=== PATIENT | male | born 1960 | race Caucasian/White ===

== ENCOUNTER 2016-03-04 12:38 | Emergency (ER) | payer MEDICARE ==
[2012-10-08 20:48] VITALS: BMI 26.1
[~2016-03-04 12:38] MED LIST: APRESOLINE25 MG PO; ASPIRIN325 MG PO; ASPIRIN81 MG PO; DIABETA5 MG PO; EFFIENT10 MG PO; GLIMEPIRIDE1 MG PO; GLUCOPHAGE1000 MG PO; KEFLEX500 MG PO; LANTUS SOL100 UNIT/1; NITROSTAT0.3 MG SL; NORCO 10/325 TA1 TA1 PO; NORVASC5 MG PO; PRINIVIL20 MG PO; TOPROL XL50 MG PO; VENTOLIN HFA18 GM INH; ZOCOR40 MG PO
[2016-03-04 13:31] LABS: BASOPHILS 0.3 % (0.0-2.0); EOSINOPHILS 0.4 % (0-7); HEMATOCRIT 40.2 % (42.0-54.0); HEMOGLOBIN 13.9 g/dL (13.5-17.5); IMMATURE GRANULOCYTES 0.3 % (0-5); LYMPHOCYTES 16.6 % (15-50); MCH 29.3 pg (26.0-34.0); MCHC 34.6 g/dL (31.0-37.0); MCV 84.6 fL (80.0-100.0); MEAN PLATELET VOLUME 8.9 fL (7.4-10.4); MONOCYTES 6.3 % (2-11); NEUTROPHILS 76.1 % (40-80); PLATELET COUNT 244 10x3/uL (130-400); RBC 4.75 10x6/uL (4.20-6.10); RDW 12.7 % (11.5-14.5); WBC 10.3 10x3/uL (4.8-10.8)
[2016-03-04 13:45] LABS: ALBUMIN 3.9 g/dL (3.4-5.0); ALKALINE PHOSPHATASE 63 U/L (46-116); ALT (SGPT) 40 U/L (10-68); CALC OSMOLALITY 265 mosm/kg (275-300); CARBON DIOXIDE 25.2 mmol/L (21.0-32.0); CHLORIDE - SERUM 95 mmol/L (98-107); CREATININE - SERUM 0.9 mg/dL (0.6-1.3); GLUCOSE 179 mg/dL (74-106); POTASSIUM - SERUM 3.7 mmol/L (3.5-5.1); PROTEIN - SERUM 6.6 g/dL (6.4-8.2); SODIUM 131 mmol/L (136-145); UREA NITROGEN 10 mg/dL (7-18); eGFR NON AFRICAN AMERICAN > 90 mL/min (90-120)
[2016-03-04 13:57] LABS: CHOL - HDL RATIO 2.5 ratio (2.3-4.9); CHOLESTEROL, TOTAL 125 mg/dL (0-200); CKMB 2.9 U/L (0.0-3.6); CREATINE KINASE 195 UL (21-232); HDL CHOLESTEROL 50 mg/dL (32-96); LDL CHOLESTEROL 58 mg/dL (0-100); LDL-HDL RATIO 1.2 ratio (1.5-3.5); MAGNESIUM - SERUM 1.3 mg/dL (1.8-2.4); TRIGLYCERIDE 85 mg/dL (30-200); TROPONIN-I < 0.017 ng/mL (0.000-0.060)
== END 2016-03-04 17:37 | disposition home or self-care (01) ==
LOC: D.ER 12:38
PROVIDERS: Emergency Medicine
DX: R07.9 Chest pain, unspecified (principal); F41.9 Anxiety disorder, unspecified; I25.10 Atherosclerotic heart disease of native coronary artery without angina pectoris; E11.9 Type 2 diabetes mellitus without complications; Z79.4 Long term (current) use of insulin; Z86.73 Personal history of transient ischemic attack (TIA), and cerebral infarction without residual deficits; F17.200 Nicotine dependence, unspecified, uncomplicated

== ENCOUNTER 2016-04-18 10:39 | Observation (INO) | payer MEDICARE, MEDICAID ==
[~2016-04-18] VITALS: Ht 182.9 cm; Wt 77.5 kg
--- NOTE | ~2016-04-18 | HEMODYNAMI ---
PATIENT:ORIANA WILSON JR MEDICAL RECORD: [id number] : 62 LOCATION:[facility] D.[address] [facility]# [id number] ADMISSION DATE: 04/18/16 Generatedon:04/20/201611:29 Patient name: ORIANA WILSON Patient #: [id number] SSN: D OB: 1960 Date of study: 04/20/2016 Page: Of Hemodynamic Procedure Report Patient Data Patient Demographics Procedure consent was obtained First Name: ORIANA Gender: Male Last Name: STEVE Suffix: [facility] Initial: Venita : 1960 Patient #: [id number] Age: 55 year(s) Race: Additional ID: [id number] Contact details Address: [address] [place] [address] B State: [place] City: [place] Zip code: [address] Past Medical History History of disease Date Diagnosis Comments Chronic lung disease->COPD COPD Hypertension Diabetes CAD Allergies Allergen Reaction Date Comments Reported Other allergy 04/20/2016 influenza virus vaccine specific Admission Admission Data Admission Date: 04/18/2016 Admission Time: 12:32 Room #: D.2121 Weight (lbs.): 175 Weight (kg.): 79.38 Current Diagnosis Diagnosis Description Unstable angina Lab Results Lab Result Date: 04/20/2016 Lab Result Time: 0:00 Biochemistry Name Units Result Min Max BUN mg/dl 13 --(--*-)-- 7 18 Creatinine mg/dl 1 --(--*-)-- 0.6 1.3 CBC Name Units Result Min Max Hemoglobin g/dl 16 --(--*-)-- 13.5 17.5 Procedure Procedure Types Cath Procedure Diagnostic Procedure [facility] w/Coronaries PCI Procedure Coronary Stent Initial PTCA Additional Miscellaneous Procedures Moderate Sedation up to 30 minutes Procedure Description Procedure Date Procedure Date: 04/20/2016 Procedure Start Time: 11:03 Procedure End Time: 11:23 Procedure Staff Name Function Bon Agarwal MD Performing Physician Dulce Pacheco RN Nurse Nicholas Rdz RT Monitor Kalia Lockwood RT Scrub Procedure Data Cath Procedure Fluoroscopy Diagnostic fluoroscopy Total fluoroscopy Time: 5.1 time: 5.1 min min Diagnostic fluoroscopy Total fluoroscopy dose: 260 dose: 260 mGy mGy Contrast Material Contrast Material Type Amount (ml) Isovue 300 101 Entry Location Entry Primary Successful Side Size Upsize Upsize Entry Closure Succes sful Closure Location (Fr) 1 (Fr) 2 (Fr) Remarks Device Remarks Femoral Right 5 Fr 6 Fr Exoseal artery Short Diagnostic catheters Device Type Used For End Catheter Placement Cordis 5Fr Pigtail LV Angiography Catheter (MP) Cordis 5Fr JL 4.0 Left Coronary Catheter (MP) Angiography Cordis 5Fr 3DRC Catheter Right Coronary (MP) Angiography Procedure Complications No complications Procedure Medications Medication Administration Route Dosage Plavix P.O. 75 mg Heparin Flush Bag added to field 2 bags (1000units/500ml NS) Oxygen NC 2 l/min Lidocaine 2% added to field 20 Versed I.V. 1 mg Fentanyl I.V. 50 mcg Versed I.V. 1 mg Fentanyl I.V. 50 mcg Heparin Bolus I.V. 4000 units Hemodynamics Rest HGB: 16 (g/dl) Heart Rate: 51 (bpm) Snapshots Pre Cath Intra NCS Post Cath Vital Signs Time Heart Resp SPO2 NIBP (mmHg) Rhythm Pain Sedation Rate (ipm) (%) Status Level (bpm) 10:49:15 55 18 100 157/93(129) NSR 0 (11) 10(A) , No pain 10:53:33 62 18 100 157/94(136) NSR 0 (11) 10(A) , No pain 10:57:49 67 20 96 140/87(115) NSR 0 (11) 10(A) , No pain 11:02:06 67 20 98 127/85(100) NSR 0 (11) 9(A) , No pain 11:06:15 65 15 95 145/87(109) NSR 0 (11) 9(A) , No pain 11:10:32 67 14 96 144/82(111) NSR 0 (11) 9(A) , No pain 11:14:48 63 14 96 143/84(113) NSR 0 (11) 9(A) , No pain 11:19:03 65 15 96 149/87(111) NSR 0 (11) 9(A) , No pain 11:23:18 65 16 96 138/87(124) NSR 0 (11) 9(A) , No pain Medications Time Medication Route Dose Verified Delivered Reason Notes Effectiveness by by 10:47:03 Oxygen NC 2 Bon Crockett Per physician l/min Any Agarwal MD 10:47:25 Plavix P.O. 75 mg Bon Dulce for Any Pacheco RN antiplatelet therapy 10:47:33 Heparin Flush added 2 Bonamy Crockett used for Bag to bags Any Agarwal MD procedure (1000units/500ml field NS) 10:47:55 Lidocaine 2% added 20ml Bon Bon used for to vial Any Agarwal MD procedure field 10:58:58 Versed I.V. 1 mg Bon Dulce for sedation Any Pacheco RN 10:59:04 Fentanyl I.V. 50 Bon Dulce for sedation mcg Any Pacheco RN 11:01:07 Versed I.V. 1 mg Bon Dulce for sedation Any Pacheco RN 11:01:11 Fentanyl I.V. 50 Bon Dulce for sedation mcg Any Pacheco RN 11:09:32 Heparin Bolus I.V. 4000 Bon Dulce for dose units Any Pacheco RN anticoagulation verified [facility] dr agarwal Procedure Log Time Note 10:15:44 Nicholas Rdz RT(R) sent for patient. Start room use. 10:28:51 Time tracking: Regular hours 10:28:54 Plan of Care:Hemodynamics will remain stable., Cardiac rhythm will remain stable., Comfort level will be maintained., Respiratory function will remain adequate., Patient/ family verbilizes understanding of procedure., Procedure tolerated without complication., Recovers from procedure without complications.. 10:29:12 ACC Patient presents with Unstable Angina CCS Anginal Class 3--Marked limitation of physical activity, angina occurs with ordinary activity.. 10:30:32 ACCPatient has been prescribed/administered the following anti-anginal medication within the last 2 weeks: Beta Jose 10:39:31 Patient received from PCU to CCL 3 Alert and oriented. Tansferred to table in Supine position. 10:39:32 Warm blankets applied, and nura hugger turned on for patient comfort. 10:39:33 Correct patient and procedure confirmed by team. 10:39:34 Signed procedure consent form obtained from patient. 10:39:34 ECG and BP/O2 sat monitors applied to patient. 10:47:03 Oxygen 2 l/min NC was given by Bon Agarwal MD; Per physician; 10:47:25 Plavix 75 mg P.O. was given by Dulce Pacheco RN; for antiplatelet therapy; 10:47:33 Heparin Flush Bag (1000units/500ml NS) 2 bags added to field was given by Bon Agarwal MD; used for procedure; 10:47:55 Lidocaine 2% 20ml vial added to field was given by Bon Agarwal MD; used for procedure; 10:48:08 Vital chart was started 10:52:10 Baseline sample Acquired. 10:52:14 Rhythm: sinus rhythm 10:52:15 Full Disclosure recording started 10:52:35 H&P Date Dictated: 04/18/2016 Within 30 days and on chart.. 10:53:54 Pre-procedure instructions explained to patient. 10:53:55 Pre-op teaching completed and patient verbalized understanding. 10:53:58 Family unavailable. 10:53:59 Patient NPO since Midnight. 10:54:30 Patient allergic to Other allergyinfluenza virus vaccine specific 10:54:32 Is the patient allergic to Iodine/contrast media? No. 10:54:37 Is patient on blood thinner?Yes 10:54:40 ACC The patient was administered the following blood thiners within the last 24 hours: ACCPlavix 10:54:42 Patient diabetic? Yes. 10:54:44 If diabetic: On Metformin? Yes 10:54:49 If on Metformin: Last Dose? 04/16/2016 10:54:51 ----Pre-sedation anethsthesia assessment.---- 10:54:53 Previous problem with sedation/anesthesia? No ? 10:54:54 Snore? Yes 10:54:55 Sleep apnea? No 10:54:58 Deviated septum? No 10:54:59 Opens mouth fully? Yes 10:55:00 Sticks out tongue? Yes 10:55:08 Airway obstruction? Yes emphyzemia, COPD 10:55:12 Dentures? No ? 10:55:16 Pre procedure: right dorsailis pedis pulse 1+ Palpable, but thready & weak; easily obliterated 10:55:18 Patient pain scale 0/10 ?. 10:55:23 IV patent on arrival in right antecubital with 0.9% NaCl at 10ml/hr. 10:55:48 Lab Result : BUN 13 mg/dl 10:55:48 Lab Result : Creatinine 1 mg/dl 10:55:48 Lab Result : Hemoglobin 16 g/dl 10:55:51 Lab results completed and on chart. 10:55:55 Right groin area was prepped with chlora-prep and draped in sterile fashion 10:55:56 Alarms reviewed by R. N. 10:55:56 Sharps counted by scrub and verified by R.N. 10:56:02 Use device set Femoral Dx 10:56:03 Acist Syringe opened to sterile field. 10:56:03 Bag Decanter opened to sterile field. 10:56:03 Medline Cath Pack opened to sterile field. 10:56:04 Terumo 5Fr [place] Sheath opened to sterile field. 10:56:04 St Nathan 260cm J .035 wire opened to sterile field. 10:56:06 Acist Hand Control opened to sterile field. 10:56:06 Acist Manifold opened to sterile field. 10:56:06 Diagnostic Infinity 5Fr Multipack catheter opened to sterile field. 10:56:07 Tegaderm 4 x 4 opened to sterile field. 10:58:01 Patient Weight : 79.38 kg 10:58:04 Current Diagnosis : Unstable angina 10:58:44 --------ALL STOP TIME OUT------ 10:58:45 Final Timeout: patient, procedure, and site verified with staff and physician. All members of the team are in agreement. 10:58:47 Right groin site verified by team. 10:58:50 Physical assessment completed. ASA score P 2 - A patient with mild systemic disease as per Bon Agarwal MD. 10:58:53 Sedation plan: IV Moderate Sedation Versed, Fentanyl 10:58:58 Versed 1 mg I.V. was given by Dulce Pacheco RN; for sedation; 10:59:04 Fentanyl 50 mcg I.V. was given by Dulce Tara RN; for sedation; 11:01:07 Versed 1 mg I.V. was given by Dulce Pacheco RN; for sedation; 11::11 Fentanyl 50 mcg I.V. was given by Dulce Pacheco RN; for sedation; 11:03:26 Procedure started. 11:03:38 Local anesthetic to right femoral artery with Lidocaine 2% by Bon Agarwal MD.INITIAL ACCESS ONLY 11:03:52 A 5 Fr sheath was inserted into the Right Femoral artery 11:04:15 Zero performed for pressure channel P1 11:04:44 A Cordis 5Fr Pigtail Catheter (MP) was advanced over the wire and used for LV Angiography. 11:04:48 LV angiography performed. 11:04:49 LV gram done using VELEZ 11:04:51 LV hemodynamics recorded. 11::57 Injector settings: Ml/sec: 10, Volume: 20, 11:05:46 EF : 40 % 11:05:47 Catheter removed. 11:05:52 A Cordis 5Fr JL 4.0 Catheter (MP) was advanced over the wire and used for Left Coronary Angiography. 11:07:03 LCA angiography performed. 11:07:04 Catheter removed. 11:07:09 A Cordis 5Fr 3DRC Catheter (MP) was advanced over the wire and used for Right Coronary Angiography. 11:07:12 RCA angiography performed. 11:08:10 Catheter removed. 11:08:36 Reflex Systems BasixCompak Inflation Kit opened to sterile field. 11:08:36 Singleton Whisper J 300cm 0.014 guide wire opened to sterile field. 11:08:37 Terumo 6Fr [place] Sheath opened to sterile field. 11:08:37 Cordis 6FR XBLAD 4.0 guide catheter opened to sterile field. 11:08:46 Sheath upsized to a 6 Fr Short. 11:08:54 ACC PCI Site: Diag1 has 85% stenosis. 11:08:56 ACC Pre-intervention JEAN MARIE Flow is 3. 11:09:02 6 Fr XBLAD 4 guide catheter was inserted over the wire 11:09:32 Heparin Bolus 4000 units I.V. was given by Dulce Pacheco RN; for anticoagulation; dose verified wtih dr agarwal 11:09:41 Procedure type changed to Cath procedure, Diagnostic procedure, LHC, LHC w/Coronaries, PCI procedure, Coronary Stent Initial, PTCA Additional, Miscellaneous Procedures, Moderate Sedation up to 30 minutes 11:10:10 WHISPER wire advanced. 11:11:31 Inflation number: 1 A [place] [employer] Clay 2.5 X 15 balloon was prepped and advanced across the 1st Diag, then inflated to 17 CARLIE for 0:11 (min:sec). 11:12:25 Balloon removed over the wire. 11:13:34 Inflation Number: 2 A [employer] Integrity 3.0 X 12 stent was prepped and advanced across the 1st Diag. The stent was deployed at 19 CARLIE for 0:10 (min:sec). 11:13:47 Stent catheter was removed intact over wire. 11:13:48 Wire removed. 11:13:58 LAD WHISPER wire advanced. 11:14:34 Inflation number: 1 The stent balloon was then re-inflated across the Mid LAD to 5 CARLIE for 0:16 (min:sec). 11:14:56 Stent catheter was removed intact over wire. 11:16:09 Inflation number: 2 A Euphora 3.0 x 10 balloon was prepped and advanced across the Mid LAD, then inflated to 13 CARLIE for 0:06 (min:sec). 11:16:20 Inflation number: 3 The Euphora 3.0 x 10 balloon was reinflated across the Mid LAD, to 13 CARLIE for 0:10 (min:sec). 11:16:58 Balloon removed over the wire. 11:16:58 Wire removed. 11:16:59 Guide catheter removed. 11:17:04 Contrast amount:Isovue 300 101ml. 11:17:11 Cordis 6Fr Exoseal opened to sterile field. 11:17:18 Sheath removed intact; hemostasis achieved with Exoseal to the Right Femoral artery. 11:17:20 Procedure ended.(Physican Out) 11:17:41 Fluoroscopy time 05.10 minutes. 11:17:46 Fluoroscopy dose: 260 mGy 11:17:46 Flurop Dose total: 260 11:17:48 Sharps counted by scrub and verified by R.N. 11:17:49 Insertion/operative site no bleeding no hematoma. 11:17:51 Post-op/insertion site Right Femoral artery dressed using a 4 x 4 and Tegaderm. 11:17:54 Post right femoral artery:stable 11:17:55 Post Procedure Pulses reassessed and unchanged 11:17:57 Post procedure: right dorsailis pedis pulse 1+ Palpable, but thready & weak; easily obliterated. 11:18:00 Post procedure rhythm: sinus rhythm 11:18:01 Post procedure instruction explained to patient.Patient verbalizes understanding. 11:22:36 Procedure and supply charges have been captured, reviewed, submitted and are correct. 11:23:00 Procedure Complication : No complications 11:23:02 Vital chart was stopped 11:23:03 See physician's report for complete and final results. 11:23:05 Report given to PCU. 11:23:08 Patient transfered to PCU with Bed. 11:23:10 Procedure ended. 11:23:10 Full Disclosure recording stopped 11:23:12 End room use (Document Last) 11:23:16 ACC-PCI Only Patient was given prescriptions, or instructed by Bon Agarwal MD to start/continue the following medications upon discharge: Plavix Intervention Summary Intervention Notes Time ActionType Lesion and Equipment Action# Pressure Duration Attributes Used 11:11:31 Inflate 1st Diag [place] 1 17 00:11 balloon Sci Clay 2.5 X 15 balloon 11:13:34 Place stent 1st Diag Medtronic 2 19 00:10 Integrity 3.0 X 12 stent 11:14:34 Reinflate Mid LAD Medtronic 1 5 00:16 stent Integrity balloon 3.0 X 12 stent 11:16:09 Inflate Mid LAD Euphora 2 13 00:06 balloon 3.0 x 10 balloon 11:16:20 Reinflate Mid LAD Euphora 3 13 00:10 balloon 3.0 x 10 balloon Device Usage Item Name Manufacture Quantity Catalog Number Hospital Part Current Mini [facility] Lot# / Charge Number Stock Stock Serial# Code Acist Acist 1 04964 868649 671302 484342 20 Syringe Medical Systems Inc Bag Microtek 1 2002S 390778 20724 651785 5 Nirvanix Inc. Medline Cardinal 1 [id number] 991431 51791 500788 5 Designer Material Terumo 5Fr Terumo 1 [id number] 299644 611387 198960 [address] Nathan 1 324545 618494 684512 852669 30 260cm J .035 wire Acist Hand Acist 1 39199 642526 574329 515278 5 Control Medical Systems Inc Acist Acist 1 55448 757117 672782 228720 5 Manifold Medical Systems Inc Diagnostic Cardinal 1 [id number] 428496 80483 795689 30 Infinity Health 5Fr Multipack catheter Tegaderm 4 3M 1 1626W 508114 334734 123157 5 x 4 Cordis 5Fr Cardinal 1 233303 5 Pigtail Health Catheter (MP) Cordis 5Fr Cardinal 1 746674 5 JL 4.0 Health Catheter (MP) Cordis 5Fr Cardinal 1 715490 5 3DRC Health Catheter (MP) [facility] 1 LM3164 176592 647798 916280 15 BasixCompak Medical Inflation Kit Singleton Singleton 1 [id number] 379472 334636 955554 5 Whisper J Vascular 300cm 0.014 guide wire Terumo 6Fr Terumo 1 [id number] 676018 945938 718274 40 [place] Sheath Cordis 6FR Cardinal 1 [id number] 857163 761645 180011 3 XBLAD 4.0 Health guide catheter [place] Sci [place] 1 [id number] 445625 835149 979151 1 [id number] I-lighting Scientific 2.5 X 15 balloon Medtronic Medtronic 1 [id number] 553638 672492 023894 0 [id number] Integrity 3.0 X 12 stent Euphora 3.0 Medtronic 1 [id number] 353248 388871 251527 5 [id number] x 10 balloon Cordis 6Fr Cardinal 1 [id number] 218485 457291 594208 10 [facility] Aidhenscorner Signature Audit [place] Stage Time Signature Unsigned Intra-Procedure 04/20/2016 Nicholas Rdz 11:28:54 AM RT(R) Signatures Monitor : Nicholas Rdz RT Signature : Date : Time : [facility] [address] [facility], [place] [address]
[2016-04-18 11:09] LABS: BASOPHILS 0.4 % (0.0-2.0); EOSINOPHILS 1.5 % (0-7); HEMATOCRIT 45.8 % (42.0-54.0); IMMATURE GRANULOCYTES 0.1 % (0-5); LYMPHOCYTES 18.8 % (15-50); MCH 29.9 pg (26.0-34.0); MCHC 34.9 g/dL (31.0-37.0); MCV 85.4 fL (80.0-100.0); MEAN PLATELET VOLUME 9.3 fL (7.4-10.4); NEUTROPHILS 73.2 % (40-80); PLATELET COUNT 233 10x3/uL (130-400); RBC 5.36 10x6/uL (4.20-6.10); WBC 7.5 10x3/uL (4.8-10.8)
[2016-04-18 11:29] LABS: ALBUMIN 4.1 g/dL (3.4-5.0); ALKALINE PHOSPHATASE 91 U/L (46-116); ALT (SGPT) 43 U/L (10-68); BILIRUBIN - TOTAL 0.42 mg/dL (0.2-1.3); CALC OSMOLALITY 288 mosm/kg (275-300); CALCIUM 9.4 mg/dL (8.5-10.1); CARBON DIOXIDE 27.5 mmol/L (21.0-32.0); CHLORIDE - SERUM 98 mmol/L (98-107); POTASSIUM - SERUM 4.2 mmol/L (3.5-5.1); PROTEIN - SERUM 7.5 g/dL (6.4-8.2); SODIUM 137 mmol/L (136-145); UREA NITROGEN 13 mg/dL (7-18); eGFR NON AFRICAN AMERICAN 83 mL/min (90-120)
[2016-04-18 11:30] LABS: GLUCOSE 360 mg/dL (74-106)
[2016-04-18 11:40] LABS: CKMB 3.4 U/L (0.0-3.6); CREATINE KINASE 190 UL (21-232)
[2016-04-18 11:43] LABS: TROPONIN-I < 0.017 ng/mL (0.000-0.060)
--- NOTE | 2016-04-18 13:30 | NUR ---
RECIEVED FROM ER. ALERT ORIENTED.TELEMERTY SHOWS SR. PT IS ON ROOM AIR. V/S STABLE.RIGHT AC SL. DENIES ANY NEEDS AT PRESENT TIME. WILL MONITOR
[2016-04-18] MEDS ORDERED: CRESTOR20 MG PO (14:43)
[2016-04-18] MEDS ORDERED: ZOLOFT50 MG PO (14:44)
[2016-04-18] MEDS ORDERED: PRINIVIL20 MG PO (14:45)
[2016-04-18] MEDS ORDERED: GLIMEPIRIDE4 MG PO (14:47)
[2016-04-18] MEDS ORDERED: HYDROCODONE-APA1 TAB PO (14:48)
[2016-04-18 16:18] VITALS: BP 139/85
--- NOTE | 2016-04-18 17:33 | NUR ---
AMBULATING IN HALLWAY. DENIES ANY NEEDS. BACK TO ROOM. CALL LIGHT IN REACH WITH SR UP
[2016-04-18 18:41] VITALS: Ht 182.9 cm; Wt 77.5 kg
--- NOTE | 2016-04-18 18:46 | NUR ---
WATCHING TV NAD NOTED
--- NOTE | 2016-04-18 19:15 | NUR ---
INITIAL ROUNDS MADE. PT SITTING UP IN BED WATCHING TV. NO NEEDS OR C/O AT THIS TIME. STATES "GONNA GO WALKING". WILL CONT TO MONITOR.
[2016-04-18 21:07] VITALS: BP 139/92
[2016-04-19 00:34] VITALS: BP 146/97
--- NOTE | 2016-04-19 00:55 | NUR ---
ROOF SLATER AT BEDSIDE FOR VS, NEEDS ADDRESSED. CALL LIGHT IN REACH. WILL CONT TO MONITOR.
[2016-04-19 04:26] VITALS: BP 135/83
--- NOTE | 2016-04-19 06:43 | NUR ---
RESTING WELL WITH EYES CLOSED, CONT TO MONITOR.
--- NOTE | 2016-04-19 07:30 | NUR ---
RESTING QUIETLY DENIES ANY NEEDS OR DISCOMFORT AT THIS TIME NAD NOTED
[2016-04-19 08:33] VITALS: BP 145/93
[2016-04-19 12:26] VITALS: BP 163/96
[2016-04-19 15:46] VITALS: BP 151/101
--- NOTE | 2016-04-19 16:29 | NUR ---
FSBS 337 HUMALOG 8 UNITS GIVEN SQ ABD
--- NOTE | 2016-04-19 19:15 | NUR ---
INITIAL ROUNDS MADE. PT AMBULATING HALLS. NO NEEDS OR C/O VOICED AT THIS TIME. DISCUSSED PLAN OF CARE AND NPO AFTER MN.
[2016-04-19 20:00] VITALS: BP 127/81
--- NOTE | 2016-04-19 22:35 | NUR ---
WATCHING TV. NO NEEDS AT THIS TIME. CONT TO MONITOR.
--- NOTE | 2016-04-20 03:26 | NUR ---
TOWEL INSPECTOR AT BEDSIDE FOR VS. NEEDS ADDRESSED, CALL LIGHT IN REACH. WILL CONT TO MONITOR.
[2016-04-20 03:49] VITALS: BP 139/90
--- NOTE | 2016-04-20 05:15 | NUR ---
AMBULATE WITH PT TO ER REGISTRATION TO LOCK UP PT MARIZTA
--- NOTE | 2016-04-20 06:11 | NUR ---
PT UP TO SHOWER.
[2016-04-20 08:17] VITALS: BP 170/102
--- NOTE | 2016-04-20 09:20 | NUR ---
TELEMETRY SR. NPO FOR [facility]. WILL CONT. PLAN OF CARE.
--- NOTE | 2016-04-20 10:00 | NUR ---
UP AMBULATING HALLWAY ADLIB. GAIT STEADY.
--- NOTE | 2016-04-20 10:09 | HP ---
PATIENT: ORIANA WILSON JR MEDICAL RECORD: [id number] ACCOUNT: [id number] LOCATION:[address] : 62 ADMISSION DATE: 04/18/16 HISTORY AND PHYSICAL EXAMINATION DIAGNOSES: 1. Unstable angina. 2. Coronary artery disease. 3. Previous multivessel percutaneous transluminal coronary angioplasty stent. 4. Previous cerebrovascular accident. 5. Diabetes. 6. Hypertension. 7. Hyperlipidemia. HISTORY OF PRESENT ILLNESS: This is a gentleman who presents with chest pain for the past 24 hours. His EKG has nonspecific ST-T abnormalities, especially inferiorly. He continues to have chest pain, this is just like his previous anginal pain. Last cardiac stenting was in 2012. He does have hypertension, hyperlipidemia and diabetes, and he has not been on any medications for the past few days due to noncompliance. PHYSICAL EXAMINATION: GENERAL APPEARANCE: Well-nourished, well-developed, appears stated age. Level of distress, comfortable. PSYCHIATRIC: Mental status, alert, normal affect. Orientation, oriented to time, place and person. EYES: Lids and conjunctiva, noninjected. No discharge, no pallor. ENT: Lips, teeth, gums, normal dentition. Oropharynx, no cyanosis, no pallor. NECK: Carotid arteries, bilateral normal upstroke, no bruits, no thrills. JUGULAR VEINS: No jugular venous pressure or distention. CERVICAL LYMPH NODES: Nontender, nonenlarged. THYROID: Not enlarged. Nontender. No nodules. LUNGS: Respiratory effort, unlabored. CHEST: Normal curvature. No thoracic deformity. No chest wall tenderness. Percussion, resonant. Auscultation, clear. No wheezes, no rales, no rhonchi. CARDIOVASCULAR: Precordial exam, nondisplaced. No heaves or pericardial thrills. Rate and rhythm, regular. Heart sounds, normal S1, normal S2. No S3, no gallop, no rub. Systolic murmur, not heard. Diastolic murmur, not heard. EXTREMITIES: No cyanosis, no edema. Peripheral pulses, full and equal in all extremities, except as noted. No bruits appreciated. ABDOMEN: Soft, nondistended. Normal aorta. No bruit. Nontender. No masses. Liver, nontender, no hepatomegaly. Spleen, nontender, no splenomegaly. MUSCULOSKELETAL: No joint tenderness. No joint swelling. No erythema. NEUROLOGICAL: Normal gait, normal strength, normal tone. SKIN: Warm and dry. REVIEW OF SYSTEMS: The patient reports easy bruising but reports no swollen glands. The patient reports no fever, no night sweats, no significant weight gain, no significant weight loss. No significant exercise tolerance. The patient reports no dry eyes, no irritation, no vision change. Patient reports no difficulty hearing and no ear pain. Patient reports no frequent nose bleeds or nose and sinus problems. Patient reports on arm pain on exertion. No shortness of breath while lying down. No history of heart murmur. Patient reports no cough, no wheezing or coughing up blood. Patient reports no abdominal pain, no vomiting. Normal appetite. No diarrhea and not vomiting HISTORY AND PHYSICAL [id number] ORIANA WILSON blood. No nausea and no constipation. Patient reports no incontinence. No difficulty urinating. No hematuria. No increased frequency. Patient reports no muscle aches. No weakness, no arthralgias, no back pain. No swelling of the extremities. Patient reports no abnormal mole, no jaundice, no rashes. Reports no loss of consciousness. No weakness and no numbness. No seizures, dizziness, or headaches. The patient reports no depression, no sleep disturbance, feeling safe in a relationship and no alcohol abuse. Patient reports on fatigue. Reports no runny nose or sinus pressure. No itching, no hives, and no frequent sneezing. OVERALL IMPRESSION: Unstable angina. At this time, we will load with Plavix, start aspirin, give Lovenox, restart his metoprolol and give nitrates. Plan for cardiac catheterization in the near future. TRANSINT:[id number] Voice Confirmation ID: [id number] DOCUMENT ID: [id number] JANNA GRAF MD at 1009 CC: [id number] DICTATION DATE: 04/18/16 1141 OUTSIDE SALES ASSOCIATE: 04/18/16 1208 ADM IN [place] [id number] [place] [address]
--- NOTE | 2016-04-20 10:34 | NUR ---
PRE-OPS GIVEN BY NS. TO MACHINE I CUTTER BY BED.
--- NOTE | 2016-04-20 11:50 | NUR ---
BACK FROM DYE MACHINE OPERATOR. VS WNL. RIGHT GROIN STABLE WITHOUT BLEEDING OR HEMATOMA NOTED. WILL MONITOR.
[2016-04-20 12:31] VITALS: BP 130/90
--- NOTE | 2016-04-20 15:26 | NUR ---
BED REST UP. GROIN STABLE.
[2016-04-20 15:55] VITALS: BP 138/89
--- NOTE | 2016-04-20 19:15 | NUR ---
INITIAL ROUNDS MADE. PT SITTING UP IN CHAIR AT BEDSIDE. RIGHT GROIN STABLE. VSS. DENIES NEEDS OR C/O. WILL CONT TO MONITOR.
[2016-04-20 20:00] VITALS: BP 126/79
[2016-04-21] VITALS: BP 127/68
--- NOTE | 2016-04-21 00:26 | NUR ---
RENDERER AT BEDSIDE FOR VS, NEEDS ADDRESSED. CALL LIGHT IN REACH. WILL CONT TO MONITOR.
[2016-04-21 04:00] VITALS: BP 114/69
[2016-04-21 08:08] VITALS: BP 150/90
[2016-04-21] MEDS ORDERED: EFFIENT10 MG PO (08:27)
[2016-04-21] MEDS ORDERED: PLAVIX75 MG PO (08:49)
--- NOTE | 2016-04-21 09:12 | NUR ---
DC PLANS GIVEN. UNDERSTANDING VOICED.
--- NOTE | 2016-05-05 14:37 | DS ---
PATIENT:ORIANA GARCIA JR :62 MEDICAL RECORD: [id number] DISCHARGE SUMMARY ADMISSION DATE: 04/18/16 DISCHARGE DATE: 04/21/16 DISCHARGE DIAGNOSES: 1. Unstable angina. 2. Coronary artery disease. 3. Percutaneous transluminal coronary angioplasty stent LAD diagonal this admission. 4. Smoking history. 5. Chronic obstructive pulmonary disease. 6. Hypertension. HOSPITAL COURSE: Mr. Garcia presents with anginal symptomatology, found to have single vessel disease to the LAD diagonal and LAD underwent successful PTCA stent of the LAD diagonal. PTCA of the left anterior descending for in-stent restenosis was discharged home with the addition of aspirin and Plavix to his medical regimen. He will follow up with [facility] in 1 month. TRANSINT:[id number] Voice Confirmation ID: [id number] DOCUMENT ID: [id number] JANNA GRAF MD at 1437 CC: [id number] DICTATION DATE: 04/20/16 1125 [address] ATTENDANT: 04/21/16 0309 DIS IN 04/21/16 [place] [id number] [place] [address]
--- NOTE | 2016-05-05 14:37 | OP ---
PATIENT NAME: ORIANA WILSON JR MEDICAL RECORD: [id number] :62 LOCATION:D.M2 D.2121 ADMISSION DATE:04/18/16 SURGEON: JANNA GRAF MD DATE OF OPERATION: 04/20/2016 PROCEDURES: 1. PTCA stent LAD diagonal. 2. PTCA, LAD. 3. Left heart catheterization. 4. Selective coronary angiography. 5. Left ventriculogram. INDICATION: Angina and coronary artery disease. PROCEDURE IN DETAIL: After informed consent was obtained and after a detailed explanation of the risks, benefits as well as alternative therapies, the patient elected to proceed with angiogram and angioplasty. The right femoral area was prepped and draped in normal sterile fashion. Right femoral artery was cannulated via modified Seldinger technique with placement of 6-Azeri sheath. All catheters exchanged through this sheath. FINDINGS: The left ventriculogram was performed in standard 30-degree VELEZ view, reveals apical hypokinesis. Overall ejection fraction decreased at 40%. SELECTIVE CORONARY ANGIOGRAPHY: 1. Left main has no significant angiographic disease. 2. Left anterior descending has previously placed stents with 70% in-stent restenosis. The diagonal has 85% stenosis at its ostium. 3. Left circumflex has [id number] irregularities, but no flow-limiting stenosis. 4. Right coronary has [id number]-bt-arzzyoov irregularities, but no flow-limiting stenosis. PTCA STENT OF THE LAD DIAGONAL: The stent used is a 3.0 x 12 mm Integrity and the stent balloon was then used for the in-stent restenosis of the LAD with a high pressure balloon inflations 19 atmospheres. Result was 0% residual throughout. No angiographic evidence of dissection or thrombus. OVERALL IMPRESSION: Successful percutaneous transluminal coronary angioplasty stent of the left anterior descending diagonal going from 85% initial stenosis to 0% residual. Successful percutaneous transluminal coronary angioplasty for in-stent restenosis of the left anterior descending going from 70% initial stenosis to 0% residual. TRANSINT:[id number] Voice Confirmation ID: [id number] DOCUMENT ID: [id number] JANNA GRAF MD at 1437 CC: [id number] DICTATION DATE: 04/20/16 1127 STAFF COUNSEL: 04/20/16 1901 DIS IN 04/21/16 [facility] [address] [place], [place] [id number]
--- NOTE | 2016-05-05 14:37 | DS ---
PATIENT:ORIANA WILSON JR :62 MEDICAL RECORD: [id number] DISCHARGE SUMMARY ADMISSION DATE: 04/18/16 DISCHARGE DATE: 04/21/16 DIAGNOSES: 1. Angina. 2. Coronary artery disease. 3. Percutaneous transluminal coronary angioplasty stent of the LAD and diagonal this admission. HOSPITAL COURSE: This is a gentleman, who presents with unstable anginal symptomatology, found to have single-vessel disease to the LAD and diagonal, was discharged home, to follow up with [facility] in 1 month. TRANSINT:[id number] Voice Confirmation ID: [id number] DOCUMENT ID: [id number] JANNA GRAF MD at 1437 CC: [id number] DICTATION DATE: 04/21/16 0956 CLAIMS COUNSEL: 04/21/16 1230 DIS IN 04/21/16 [id number] [place] [address]
== END 2016-04-21 09:13 | disposition home or self-care (01) ==
LOC: D.ER 10:39 → D.M2 12:32 → OBSVTIME 12:32 → D.M2 12:32
PROVIDERS: Family Medicine; ADMIT Internal Medicine Interventional Cardiology
DX: I25.110 Atherosclerotic heart disease of native coronary artery with unstable angina pectoris (principal); T82.855A Stenosis of coronary artery stent, initial encounter; Y83.8 Other surgical procedures as the cause of abnormal reaction of the patient, or of later complication, without mention of misadventure at the time of the procedure; I10 Essential (primary) hypertension; E78.5 Hyperlipidemia, unspecified; E11.9 Type 2 diabetes mellitus without complications; J44.9 Chronic obstructive pulmonary disease, unspecified; Z86.73 Personal history of transient ischemic attack (TIA), and cerebral infarction without residual deficits; Z87.891 Personal history of nicotine dependence

== ENCOUNTER 2016-04-25 22:14 | Inpatient (IN) | payer MEDICARE, MEDICAID ==
[~2016-04-25] VITALS: Ht 182.9 cm; Wt 75.6 kg
--- NOTE | ~2016-04-25 | HEMODYNAMI ---
PATIENT:ORIANA WILSON JR MEDICAL RECORD: [id number] : 62 LOCATION:[facility] D.2307 ADMISSION DATE: 04/25/16 Generatedon:04/26/20169:24 Patient name: ORIANA WILSON Patient #: [id number] SSN: [id number] : 1960 Date of study: 04/26/2016 Page: Of Hemodynamic Procedure Report Patient Data Patient Demographics Procedure consent was obtained First Name: ORIANA Gender: Male Last Name: STEVE Suffix: Jr Head Initial: Venita : 1960 Patient #: [id number] Age: 55 year(s) Race: SSN: [id number] Additional ID: [id number] Contact details Address: [address] [place] [address] B State: [place] City: [place] Zip code: [address] Past Medical History History of disease Date Diagnosis Comments Chronic lung disease->COPD COPD Hypertension Diabetes CAD Allergies Allergen Reaction Date Comments Reported Other allergy 04/20/2016 influenza virus vaccine specific Admission Admission Data Admission Date: 04/25/2016 Admission Time: 23:47 Arrival Date: 04/25/2016 Arrival Time: 23:47 Admit Source: Other Insurance Payor: Medicare Room #: D.2307 Lab Results Lab Result Date: 04/26/2016 Lab Result Time: 0:00 Biochemistry Name Units Result Min Max BUN mg/dl 15 --(--*-)-- 7 18 Creatinine mg/dl 0.9 --(-*--)-- 0.6 1.3 CBC Name Units Result Min Max Hemoglobin g/dl 16.3 --(--*-)-- 13.5 17.5 Procedure Procedure Types Cath Procedure Diagnostic Procedure [facility] w/Coronaries Miscellaneous Procedures Moderate Sedation up to 15 minutes Procedure Description Procedure Date Procedure Date: 04/26/2016 Procedure Start Time: 9:09 Procedure End Time: 9:18 Procedure Staff Name Function Alfie Gunn MD Performing Physician Jana Parra RT Scrub Aura Bermudez RN Nurse Trnii Khalil RT Monitor Procedure Data Cath Procedure Fluoroscopy Diagnostic fluoroscopy Total fluoroscopy Time: 1.2 time: 1.2 min min Diagnostic fluoroscopy Total fluoroscopy dose: 340 dose: 340 mGy mGy Contrast Material Contrast Material Type Amount (ml) Isovue 300 50 Entry Location Entry Primary Successful Side Size Upsize Upsize Entry Closure Succes sful Closure Location (Fr) 1 (Fr) 2 (Fr) Remarks Device Remarks Femoral Right 6 Fr Exoseal artery Short Estimated blood loss: 10 ml Diagnostic catheters Device Type Used For End Catheter Placement Cordis 5Fr JL 4.0 Procedure Catheter (MP) Cordis 5Fr 3DRC Catheter Procedure (MP) Cordis 5Fr Pigtail Ventriculography Catheter (MP) Procedure Complications No complications Procedure Medications Medication Administration Route Dosage Oxygen NC 2 l/min Lidocaine 2% added to field 20 Heparin Flush Bag added to field 2 bags (1000units/500ml NS) 0.9% NaCl I.V. 100 ml/hr Versed I.V. 1 mg Fentanyl I.V. 50 mcg Heparin Drip I.V. drip (48025axnzv/250 D5W) Nitro (50mg/250 D5W) I.V. drip Versed I.V. 1 mg Fentanyl I.V. 50 mcg Plavix P.O. 150 Hemodynamics Rest HGB: 16.3 (g/dl) Heart Rate: 105 (bpm) Pressure Samples Time Site Value (mmHg) Purpose Heart Use Rate(bpm) 9:14 LV 109/15,17 Snapshot 84 9:14 AO 108/78(92) Pullback 108 Gradients Valve Time Site Site 2 Mean SEP/DFP Peak To Heart Use 1 (mmHg) (sec/min) Peak Rate (mmHg) (bpm) Aortic 9:14 LV AO 2 13 108 108/78(92) Calculations Valve P-P Mean Valve Index Valve Source Name Gradient Area Flow (cm2) Aortic 2 2 Snapshots Pre Cath Intra NCS Post Cath Vital Signs Time Heart Resp SPO2 etCO2 PR2hcwu NIBP (mmHg) Rhythm Pain Sedation Rate (ipm) (%) (mmHg) (mmHg) Status Level (bpm) 8:50:43 102 18 96 0 0 134/90(102) NSR 0 (11) 10(A) , No pain 8:54:53 110 20 96 0 0 127/84(98) NSR 0 (11) 10(A) , No pain 8:59:05 109 17 95 0 0 124/78(95) NSR 0 (11) 10(A) , No pain 9:03:12 111 18 95 0 0 122/83(96) NSR 0 (11) 10(A) , No pain 9:07:18 112 17 95 0 0 129/80(104) NSR 0 (11) 10(A) , No pain 9:11:26 105 16 99 0 0 114/86(98) NSR 0 (11) 9(A) , No pain 9:15:34 114 17 98 0 0 119/85(97) NSR 0 (11) 9(A) , No pain 9:22:42 112 18 99 0 0 126/87(98) NSR 0 (11) 10(A) , No pain Medications Time Medication Route Dose Verified Delivered Reason Not es Effectiveness by by 8:55:27 Oxygen NC 2 l/min Alfie Chavarria used for [facility]. Yaya Bermudez RN procedure 8:55:35 Lidocaine 2% added 20ml vial Alfie Judge for local to [facility] anesthetic field MD GARCIA 8:55:42 Heparin Flush added 2 bags Alfie Judge used for Bag to [facility] procedure (1000units/500ml field MD GARCIA NS) 8:55:52 0.9% NaCl I.V. 100 ml/hr Alfie Aura Per [facility]. Yaya gomez MD 9:00:26 Heparin Drip I.V. DISCONTINUED Alfie Chavarria Per (33356vtpcd/[address] Yaya Bermudez RN physician D5W) 9:00:45 Nitro (50mg/250 I.V. DISCONTINUED Alfie Chavarria Per D5W) drip St. Yaya gomez MD 9:07:37 Versed I.V. 1 mg Alfie Kennedyie for sedation St. Yaya Bermudez RN, MD 9:07:43 Fentanyl I.V. 50 mcg Alfie Benavidesie for sedation St. Yaya Bermudez RN, MD 9:11:03 Fentanyl I.V. 50 mcg Alfie Chavarria for sedation St. Yaya Bermudez RN, MD 9:11:59 Versed I.V. 1 mg Alfie Benavidesie for sedation St. Yaya Bermudez RN, MD 9:20:57 Plavix P.O. 150 MG Alfie Chavarria for PeeverYaya Bermudez RN antiplatelet MD therapy Procedure Log Time Note 8:26:07 Informed consent obtained and on chart 8:27:03 Admit Source: Other 8:27:11 Arrival Date: 04/25/2016 11:47:00 PM 8:27:19 Insurance Payor : Medicare 8:28:51 Lab Result : Hemoglobin 16.3 g/dl 8::51 Lab Result : Creatinine 0.9 mg/dl 8::51 Lab Result : BUN 15 mg/dl 8:30:58 Diagnostic Cath Status : Elective 8:32:21 Aura Bermudez RN sent for patient. Start room use. 8:34:45 Time tracking: Regular hours 8:34:51 Plan of Care:Hemodynamics will remain stable., Cardiac rhythm will remain stable., Comfort level will be maintained., Respiratory function will remain adequate., Patient/ family verbilizes understanding of procedure., Procedure tolerated without complication., Recovers from procedure without complications.. 8:45:29 Patient received from CVICU to CCL 1 Alert and oriented. Tansferred to table in Supine position. 8:49:36 Warm blankets applied, and nura hugger turned on for patient comfort. 8:49:36 Warm blankets applied, and nura hugger turned on for patient comfort. 8:49:37 Correct patient and procedure confirmed by team. 8:49:38 ECG and BP/O2 sat monitors applied to patient. 8:49:39 Vital chart was started 8:49:44 Baseline sample Acquired. 8:49:49 Rhythm: sinus rhythm , w/ ST elevation 8:49:51 Full Disclosure recording started 8:49:58 H&P Date Dictated: 04/26/2016 New H&P dictated by physician.. 8:49:59 Pre-procedure instructions explained to patient. 8:50:00 Pre-op teaching completed and patient verbalized understanding. 8:50:02 Family in waiting room. 8:50:03 Patient NPO since Midnight. 8:50:12 Is the patient allergic to Iodine/contrast media? No. 8:50:14 Was the patient premedicated? No 8:50:15 Is patient on blood thinner?Yes 8:50:18 ACC The patient was administered the following blood thiners within the last 24 hours: ACCPlavix 8:50:20 Patient diabetic? Yes. 8:50:21 If diabetic: On Metformin? Yes 8:50:25 If on Metformin: Last Dose? 04/20/2016 8:50:29 Previous problem with sedation/anesthesia? No ? 8:50:31 Snore? Yes 8:50:32 Sleep apnea? No 8:50:33 Deviated septum? No 8:50:34 Opens mouth fully? Yes 8:50:35 Sticks out tongue? Yes 8:50:40 Airway obstruction? Yes copd 8:50:43 Dentures? No ? 8:50:47 Pre procedure: right dorsailis pedis pulse 1+ Palpable, but thready & weak; easily obliterated 8:50:49 Patient pain scale 0/10 ?. 8:50:57 IV patent on arrival in right forearm with 0.9% NaCl at [facility]. 8:51:00 Lab results completed and on chart. 8:51:05 Right groin area was prepped with chlora-prep and draped in sterile fashion 8:51:07 Alarms reviewed by R. N. 8:51:07 Sharps counted by scrub and verified by R.N. 8:51:08 Physician paged 8:53:03 Baseline sample Acquired. 8:55:27 Oxygen 2 l/min NC was administered by Aura Bermudez RN; used for procedure; 8:55:35 Lidocaine 2% 20ml vial added to field was administered by Alfie Gunn MD; for local anesthetic; 8:55:42 Heparin Flush Bag (1000units/500ml NS) 2 bags added to field was administered by Alfie Gunn MD; used for procedure; 8:55:52 0.9% NaCl 100 ml/hr I.V. was administered by Aura Bermudez RN; Per physician; 8:55:55 Procedure type changed to Cath procedure, Diagnostic procedure, LHC, LHC w/Coronaries, Miscellaneous Procedures, Moderate Sedation up to 15 minutes 9:00:26 Heparin Drip (73439oxgha/250 D5W) DISCONTINUED I.V. drip was administered by Aura Bermudez RN; Per physician; 9:00:45 Nitro (50mg/250 D5W) DISCONTINUED I.V. drip was administered by Aura Bermudze RN; Per physician; 9:05:56 Physician arrived 9:05:57 --------ALL STOP TIME OUT------ 9:06:19 Final Timeout: patient, procedure, and site verified with staff and physician. All members of the team are in agreement. 9:06:21 Right groin site verified by team. 9:06:29 Physical assessment completed. ASA score P 2 - A patient with mild systemic disease as per Alfie Gunn MD. 9:06:36 Sedation plan: IV Moderate Sedation Versed, Fentanyl 9:06:45 Use device set Femoral PCI 9:06:49 Acist Syringe opened to sterile field. 9:06:50 Acist Hand Control opened to sterile field. 9:06:51 Bag Decanter opened to sterile field. 9:06:52 Medline Cath Pack opened to sterile field. 9:06:53 Terumo 6Fr Kingsbury Sheath opened to sterile field. 9:06:55 St Nathan 260cm J .035 wire opened to sterile field. 9:06:58 Merit BasixCompak Inflation Kit opened to sterile field. 9:06:59 Acist Manifold opened to sterile field. 9:07:02 Tegaderm 4 x 4 opened to sterile field. 9:07:37 Versed 1 mg I.V. was administered by Aura Bermudez RN; for sedation; 9:07:43 Fentanyl 50 mcg I.V. was administered by Aura Bermudez RN; for sedation; 9:08:57 Procedure started. 9:09:01 Local anesthetic to right femoral artery with Lidocaine 2% by Alfie Gunn MD.INITIAL ACCESS ONLY 9:09:04 Zero performed for pressure channel P1 9:09:32 A 6 Fr Short sheath was inserted into the Right Femoral artery 9:10:06 Use device set Multipack Set 9:10:09 Diagnostic Infinity 5Fr Multipack catheter opened to sterile field. 9:10:19 A Cordis 5Fr JL 4.0 Catheter (OBIE) was advanced over the wire and used for Procedure. 9:11:03 Fentanyl 50 mcg I.V. was administered by Aura Bermudez RN; for sedation; 9:11:59 Versed 1 mg I.V. was administered by Aura Bermudez RN; for sedation; 9:12:26 Catheter removed. 9:12:48 A Cordis 5Fr 3DRC Catheter (MP) was advanced over the wire and used for Procedure. 9:12:52 Catheter removed. 9:13:00 A Cordis 5Fr Pigtail Catheter (MP) was advanced over the wire and used for Ventriculography. 9:14:12 LV gram done using VELEZ 9:14:26 EF : 40 % 9:14:44 Catheter removed. 9:15:17 Cordis 6Fr Exoseal opened to sterile field. 9:15:46 Sheath removed intact; hemostasis achieved with Exoseal to the Right Femoral artery. 9:16:59 Procedure ended.(Physican Out) 9:17:13 Fluoroscopy time 01.20 minutes. 9:17:22 Flurop Dose total: 340 9:17:22 Fluoroscopy dose: 340 mGy 9:17:33 Contrast amount:Isovue 300 50ml. 9:17:37 Sharps counted by scrub and verified by R.N. 9:17:40 Insertion/operative site no bleeding no hematoma. 9:17:45 Post-op/insertion site Right Femoral artery dressed using a 4 x 4 and Tegaderm. 9:17:49 Post right femoral artery:stable 9:17:58 Post-procedure physical assessment completed. ASA score P 2 - A patient with mild systemic disease as per Alfie Gunn MD. 9:18:04 Post procedure rhythm: unchanged. 9:18:07 Estimated blood loss: 10 ml 9:18:09 Post procedure instruction explained to patient.Patient verbalizes understanding. 9:18:16 Procedure and supply charges have been captured, reviewed, submitted and are correct. 9:18:39 Procedure Complication : No complications 9:18:43 Vital chart was stopped 9:18:45 See physician's report for complete and final results. 9:18:48 Report given to ICU. 9:18:53 Patient transfered to ICU with Bed. 9:18:58 Procedure ended. 9:18:58 Full Disclosure recording stopped 9:19:02 End room use (Document Last) 9:20:57 Plavix 150 MG P.O. was administered by Aura Bermudez RN; for antiplatelet therapy; Device Usage Item Name Manufacture Quantity Catalog Hospital Part Current Minimal L ot# / Number Charge Number Stock Stock Serial# Code Acist Acist 1 47616 [id number] 659139 568665 20 JustBook Acist Hand Acist 1 18885 195449 190340 596024 5 Control Medical Systems Inc Bag Microtek 1 2002S 481529 55974 120241 5 Decanter Medical Inc. Medline Cardinal 1 [id number] 991002 73790 385120 5 Cath Pack Health Terumo 6Fr Terumo 1 ABC980 973277 760241 813180 [address] Nathan 1 648764 043719 397260 069323 30 260cm J .035 wire Merit Merit 1 [id number] 017433 462928 420846 15 BasixCompak Medical Inflation Kit Acist Acist 1 70019 333872 183419 904326 5 Manifold Medical Systems Inc Tegaderm 4 3M 1 1626W 420581 430837 240099 5 x 4 Diagnostic Cardinal 1 [id number] 252319 19947 846529 30 Infinity Health 5Fr Multipack catheter Cordis 5Fr Cardinal 1 664040 5 JL 4.0 Health Catheter (MP) Cordis 5Fr Cardinal 1 198380 5 3DRC Health Catheter (MP) Cordis 5Fr Cardinal 1 389859 5 Pigtail Health Catheter (MP) Cordis 6Fr Cardinal 1 EX600 628281 744527 690313 10 [place] Signature Audit [place] Stage Time Signature Unsigned Intra-Procedure 04/26/2016 Trini Khalil 9:24:08 AM RT(R) Signatures Monitor : Trini Khalil Signature : RT Date : Time : [id number] [place] [address]
[~2016-04-25 22:14] MED LIST changes: +CRESTOR20 MG PO; +GLIMEPIRIDE4 MG PO; +HYDROCODONE-APA1 TAB PO; +PLAVIX75 MG PO; +ZOLOFT50 MG PO
[2016-04-25 22:55] LABS: BASOPHILS 0.3 % (0.0-2.0); EOSINOPHILS 0.5 % (0-7); HEMATOCRIT 46.7 % (42.0-54.0); HEMOGLOBIN 16.3 g/dL (13.5-17.5); IMMATURE GRANULOCYTES 0.3 % (0-5); LYMPHOCYTES 17.3 % (15-50); MCH 29.4 pg (26.0-34.0); MCHC 34.9 g/dL (31.0-37.0); MCV 84.3 fL (80.0-100.0); MONOCYTES 4.4 % (2-11); NEUTROPHILS 77.2 % (40-80); PLATELET COUNT 273 10x3/uL (130-400); RBC 5.54 10x6/uL (4.20-6.10); RDW 12.7 % (11.5-14.5); WBC 10.1 10x3/uL (4.8-10.8)
[2016-04-25 23:11] LABS: ALBUMIN 4.3 g/dL (3.4-5.0); ALKALINE PHOSPHATASE 94 U/L (46-116); ALT (SGPT) 52 U/L (10-68); CALC OSMOLALITY 290 mosm/kg (275-300); CALCIUM 9.3 mg/dL (8.5-10.1); CARBON DIOXIDE 20.3 mmol/L (21.0-32.0); CHLORIDE - SERUM 98 mmol/L (98-107); CREATININE - SERUM 1.1 mg/dL (0.6-1.3); GLUCOSE 387 mg/dL (74-106); PROTEIN - SERUM 7.9 g/dL (6.4-8.2); SODIUM 137 mmol/L (136-145); UREA NITROGEN 14 mg/dL (7-18); eGFR NON AFRICAN AMERICAN 74 mL/min (90-120)
[2016-04-25 23:30] LABS: CHOL - HDL RATIO 5.8 ratio (2.3-4.9); CHOLESTEROL, TOTAL 277 mg/dL (0-200); CKMB 2.8 U/L (0.0-3.6); CREATINE KINASE 149 UL (21-232); HDL CHOLESTEROL 48 mg/dL (32-96); LDL CHOLESTEROL 150 mg/dL (0-100); LDL-HDL RATIO 3.1 ratio (1.5-3.5); TRIGLYCERIDE 399 mg/dL (30-200)
[2016-04-25 23:31] LABS: TROPONIN-I 0.085 ng/mL (0.000-0.060)
[2016-04-26] VITALS (29 sets, daily range): BP systolic 107–161; BP diastolic 69–121; Ht 182.9 cm; Wt 75.6 kg
[2016-04-26 00:07] LABS: APTT 28.2 SECONDS (22.8-39.4)
[2016-04-26 00:20] LABS: INR 0.96 (0.85-1.17); PROTIME 12.6 SECONDS (11.6-15.0)
--- NOTE | 2016-04-26 01:05 | NUR ---
ARRIVED TO ROOM 2307 VIA STRETCHER. MOVED SELF OVER TO ICU BED. CONNECTED TO ICU MONITORING EQUIPMENT. URINAL GIVEN TO VOID IN. CLEAR, FARTUN URINE NOTED. SINUS TACHYCARDIA TO SINUS RHYTHM ON THE MONITOR 90-100'S. O2 @ 2LPM/NC FOR CHEST PAIN. HAS WALLET, KEYS AND PHONE IN HAND. BAG OF BELONGINS PLACED INTO BEDSIDE CHAIR. LEFT AC PIV 20G WITH NITRO @ 3ML/HR OR 10MCG/MIN. RT FOREARM 20G PIV INTACT HEPARIN @ 10ML/HR OR 1,000 UNITS/HR; NS @ 100ML/HR; MORPHINE SAP TECHNICAL DEVELOPER @ 1MG Q 1O MIN STARTED. ADMISSION HISTORY AND ET ALL COMPLETED.
--- NOTE | 2016-04-26 02:00 | NUR ---
PLACED NIBP CUFF TO LEFT LEG FOR COMFORT SINCE HE TOOK IT OFF ALL TOGETHER.
--- NOTE | 2016-04-26 02:30 | NUR ---
REPLACED B/P CUFF FROM LEFT LEG TO RT ARM DUE TO NOT ACCURATE READING.
--- NOTE | 2016-04-26 04:30 | NUR ---
I & O'S ASSESSED. REPORTS CHEST PAIN A 6/10 MIDSTERNAL. UNABLE TO SEE ANY SIGNIFICANT EKG CHANGES ON THE MONITOR. INCREASED NITRO TO 5ML/HR FROM 3ML/HR. PAYROLL TECHNICIAN ENCOURAGED USE.
--- NOTE | 2016-04-26 05:55 | NUR ---
C/O MIDSTERNAL CHEST PAIN. C/O OF PAIN A 9/10 ON NUMBER SCALE. HAD EMESIS OF 200ML OF BILE COLORED DRAINAGE. UNABLE TO DESCRIBE PAIN EXCEPT FOR "IRRITATING" AND STATES "I'M NOT GOING TO MAKE IT". WILL OBTAIN STAT EKG AND LABS.
--- NOTE | 2016-04-26 06:15 | NUR ---
JO-ANN HINOJOSA FROM E.R. TOOK HOME MED BAG AND TOOK TO E[facility] AND STORED IN THERE PYXIS. EMPTY MEDICINE GIVEN BACK TO PATIENT. NEW EMESIS BAG GIVEN. WILL MONITOR.
[2016-04-26 06:23] LABS: BASOPHILS 0.2 % (0.0-2.0); EOSINOPHILS 0.3 % (0-7); HEMATOCRIT 45.8 % (42.0-54.0); IMMATURE GRANULOCYTES 0.3 % (0-5); LYMPHOCYTES 10.4 % (15-50); MCH 29.9 pg (26.0-34.0); MCHC 34.9 g/dL (31.0-37.0); MCV 85.4 fL (80.0-100.0); MONOCYTES 8.5 % (2-11); NEUTROPHILS 80.3 % (40-80); PLATELET COUNT 252 10x3/uL (130-400); RBC 5.36 10x6/uL (4.20-6.10)
[2016-04-26 06:26] LABS: WBC 15.9 10x3/uL (4.8-10.8)
[2016-04-26 07:12] LABS: CALCIUM 9.1 mg/dL (8.5-10.1); CARBON DIOXIDE 18.9 mmol/L (21.0-32.0); CHLORIDE - SERUM 101 mmol/L (98-107); CREATININE - SERUM 0.9 mg/dL (0.6-1.3); MAGNESIUM - SERUM 1.6 mg/dL (1.8-2.4); PHOSPHOROUS 4.4 mg/dL (2.5-4.9); POTASSIUM - SERUM 4.3 mmol/L (3.5-5.1); SODIUM 138 mmol/L (136-145); UREA NITROGEN 15 mg/dL (7-18); eGFR NON AFRICAN AMERICAN > 90 mL/min (90-120)
[2016-04-26 07:13] LABS: CALC OSMOLALITY 289 mosm/kg (275-300); GLUCOSE 339 mg/dL (74-106)
[2016-04-26 07:14] LABS: CREATINE KINASE 2355 UL (21-232)
[2016-04-26 07:15] LABS: CKMB 204.3 U/L (0.0-3.6)
--- NOTE | 2016-04-26 07:17 | NUR ---
DR. LAMA PAGED VIA ANSWERING SERVICE.
--- NOTE | 2016-04-26 07:25 | NUR ---
DR. GRAHAM MADE AWARE OF ELEVATED, CRITICAL TROPONIN AND FO REPORTS OF CHEST PAIN AND EMESIS AT 0600. WILL CATH TODAY. CALLED TELEMETRY PER DR. GRAHAM'S REQUEST TO INFORM MONITORS OF PATIENT LOCATION. DAY SHIFT NURSEJENNIFER MADE AWARE OF GOING TO POULTRY OFFAL WORKER TODAY.
--- NOTE | 2016-04-26 08:13 | NUR ---
FLIGHT CREW ORDNANCEMAN CALLED WITH INSTRUCTION TO PRE-OP. PRE-OP MED GIVEN
--- NOTE | 2016-04-26 08:43 | NUR ---
TO VOCATIONAL EVALUATOR VIA BED PER TWO VOCATIONAL EVALUATOR STAFF.
--- NOTE | 2016-04-26 09:19 | NUR ---
REPORT RECD. FROM [facility] NURSE
--- NOTE | 2016-04-26 09:45 | NUR ---
RETRUNED FROM DIRECTOR OF ARCHITECTURE VIA BED AND TWO DIRECTOR OF ARCHITECTURE STAFF, AWAKE AND ALERT.
[2016-04-26 11:41] LABS: CREATINE KINASE 1541 UL (21-232)
[2016-04-26 11:42] LABS: CKMB 161.5 U/L (0.0-3.6)
--- NOTE | 2016-04-26 14:23 | NUR ---
IVs REMOVED FROM RIGHT FA AND LEFT AC, INTACT, ADY. WELL
--- NOTE | 2016-04-26 14:30 | NUR ---
DC order - patient does not have transportation home - he is currently living at [address] ([facility]). Call placed to [employer] - they will transport him to above address on hospital voucher.
--- NOTE | 2016-04-26 14:42 | NUR ---
MEDICATIONS RETRIEVED FROM Rx AND GIVEN TO PATIENT, DC TO FRONT OF BUILDING TO WAIT ON TAXI, HE WANTED NURSE TO TAKE HIM TO STREET TO SMOKE, THIS WAS NOT DONE.
--- NOTE | 2016-04-28 15:00 | OP ---
PATIENT NAME: ORIANA WILSON JR MEDICAL RECORD: [id number] :62 LOCATION:[facility] D.2307 ADMISSION DATE:04/25/16 SURGEON: JOSE WYMAN MD DATE OF OPERATION: 04/26/2016 PROCEDURE: Left heart catheterization, selective coronary angiography, right femoral artery approach. CATHETERS: A 5-Chinese sheath, 5/4 left and right Michael, 5/4 pig. The procedure was well tolerated. The patient returned to the ICU, sheath removed. ExoSeal device placed. FINDINGS: Left ventriculography shows better than expected LV function, has anterior apical mid anterior wall hypokinesis. Overall, function mildly reduced at 40%. CORONARY ANATOMY: Left main: Left main is free of disease. LAD: Has luminal irregularities of previous stenting from a week ago was widely patent. CIRCUMFLEX: Luminal irregularities. RIGHT CORONARY ARTERY: Luminal irregularities, previous stenting widely patent. IMPRESSION: Marked reperfusion with thrombolytics post-noncompliance and acute stent thrombosis, LV function better than expected. TRANSINT:[id number] Voice Confirmation ID: [id number] DOCUMENT ID: [id number] JOSE WYMAN MD at 1500 CC: [id number] DICTATION DATE: 04/26/16 09 SENIOR MECHANICAL DESIGN ENGINEER: 04/26/16 1200 DIS IN 04/26/[address] [address]
--- NOTE | 2016-04-28 15:00 | DS ---
PATIENT:ORIANA WILSON JR :62 MEDICAL RECORD: [id number] DISCHARGE SUMMARY ADMISSION DATE: 04/25/16 DISCHARGE DATE: 04/26/16 DATE OF ADMISSION: 04/25/2016. DATE OF DISCHARGE: 04/26/2016. PROBLEM LIST: 1. Acute myocardial infarction secondary to stent thrombosis secondary to noncompliance. 2. Diabetes mellitus. 3. Ongoing tobacco use with long-term smoking history. 4. Hypertension. 5. Hyperlipidemia. BRIEF HISTORY AND HOSPITAL COURSE: A 55-year-old gentleman underwent stenting 7 days ago, did not take Plavix or statins ____ with acute myocardial infarction and received thrombolytic therapy with marked improvement in symptomatology. Diagnostic angiography confirmed widely patent stents with good apposition against arterial sykes, felt acute stent thrombosis secondary to noncompliance and likely platelet inhibition. He was discharged home in good condition although long-term outlook is obviously guarded given his long history of noncompliance. TRANSINT:[id number] Voice Confirmation ID: [id number] DOCUMENT ID: [id number] JOSE WYMAN MD at 1500 CC: [id number] DICTATION DATE: 04/26/1623 AIRPORT OPERATIONS COORDINATOR: 04/27/16 0428 DIS IN 04/26/16 [address] [place] [address]
== END 2016-04-26 14:40 | disposition home or self-care (01) | DRG 281 ==
LOC: D.ER 22:14 → D.ICU 23:47
PROVIDERS: Surgery; ADMIT Internal Medicine Interventional Cardiology
PROC: B2151ZZ Fluoroscopy of Left Heart using Low Osmolar Contrast (ICD-10-PCS; 2016-04-26)
PROC: 4A023N7 Measurement of Cardiac Sampling and Pressure, Left Heart, Percutaneous Approach (ICD-10-PCS; 2016-04-26)
PROC: B2111ZZ Fluoroscopy of Multiple Coronary Arteries using Low Osmolar Contrast (ICD-10-PCS; principal; 2016-04-26 08:32)
DX: I21.3 ST elevation (STEMI) myocardial infarction of unspecified site (principal); T82.867A Thrombosis due to cardiac prosthetic devices, implants and grafts, initial encounter; Y83.8 Other surgical procedures as the cause of abnormal reaction of the patient, or of later complication, without mention of misadventure at the time of the procedure; E11.9 Type 2 diabetes mellitus without complications; I10 Essential (primary) hypertension; E78.5 Hyperlipidemia, unspecified; Z91.14 Patient's other noncompliance with medication regimen; Z72.0 Tobacco use

== ENCOUNTER 2016-04-28 12:18 | Observation (INO) | payer MEDICARE, MEDICAID ==
[~2016-04-28] VITALS: Ht 182.9 cm; Wt 77.6 kg
[2016-04-28 12:57] LABS: BASOPHILS 0.2 % (0.0-2.0); EOSINOPHILS 0.2 % (0-7); HEMOGLOBIN 15.3 g/dL (13.5-17.5); IMMATURE GRANULOCYTES 0.4 % (0-5); LYMPHOCYTES 10.6 % (15-50); MCH 30.2 pg (26.0-34.0); MCHC 34.8 g/dL (31.0-37.0); MCV 86.8 fL (80.0-100.0); MEAN PLATELET VOLUME 9.8 fL (7.4-10.4); MONOCYTES 9.4 % (2-11); NEUTROPHILS 79.2 % (40-80); PLATELET COUNT 287 10x3/uL (130-400); RBC 5.07 10x6/uL (4.20-6.10); RDW 13.1 % (11.5-14.5)
[2016-04-28 13:05] LABS: APTT 29.9 SECONDS (22.8-39.4); INR 1.06 (0.85-1.17); PROTIME 13.6 SECONDS (11.6-15.0)
[2016-04-28 13:27] LABS: ALBUMIN 3.1 g/dL (3.4-5.0); ANION GAP 24.1 mmol/L (8-16); BILIRUBIN - TOTAL 0.53 mg/dL (0.2-1.3); CALCIUM 9.2 mg/dL (8.5-10.1); CARBON DIOXIDE 14.8 mmol/L (21.0-32.0); CREATININE - SERUM 1.5 mg/dL (0.6-1.3); POTASSIUM - SERUM 4.9 mmol/L (3.5-5.1); PROTEIN - SERUM 7.3 g/dL (6.4-8.2)
[2016-04-28 13:28] LABS: TROPONIN-I 3.449 ng/mL (0.000-0.060)
[2016-04-28 14:21] LABS: APPEARANCE CLEAR (CLEAR); BILIRUBIN NEGATIVE (NEGATIVE); COLOR STRAW (YELLOW); GLUCOSE 1000 mg/dL (NEGATIVE); KETONE MODERATE mg/dL (NEGATIVE); LEUKOCYTE ESTERASE NEGATIVE (NEGATIVE); NITRITE NEGATIVE (NEGATIVE); PROTEIN NEGATIVE (NEGATIVE); UROBILINOGEN NORMAL (NORMAL)
[2016-04-28 14:28] LABS: UDS - AMPHET NEGATIVE QUAL (NEGATIVE); UDS - BARB NEGATIVE QUAL (NEGATIVE); UDS - BENZO NEGATIVE QUAL (NEGATIVE); UDS - COCAINE NEGATIVE QUAL (NEGATIVE); UDS - METH NEGATIVE QUAL (NEGATIVE); UDS - OPIATE NEGATIVE QUAL (NEGATIVE); UDS - PCP NEGATIVE QUAL (NEGATIVE); UDS - THC NEGATIVE QUAL (NEGATIVE)
[2016-04-28 17:10] LABS: HEMOGLOBIN A1C 9.9 % (4.8-6.0)
--- NOTE | 2016-04-28 19:58 | NUR ---
RECEIVED TO ROOM 2131 ALERT AND ORIENTED 55 Y/O MALE SEEN BY DR GRAF FOR ANGINA. UP AD LUIS MANUEL W/O DIFF. DENIES NEEDS AT THIS TIME. RT HAND SL IN TACT WITH NO R/S NOTED AT SITE. HOB UP SR UP X2, C/L IN REACH CONTINUE TO MONITOR,
[2016-04-28 20:00] VITALS: BP 136/91
--- NOTE | 2016-04-29 00:15 | NUR ---
IN FLUTTER WITH HIGH HEART RATE, DR GRAF NOTIFIED AND NEW ORDERS RECEIVED. WILL FOLLOW THRU.
--- NOTE | 2016-04-29 00:38 | NUR ---
BETAPACE 80MG PO GIVEN AT THIS TIME PER ORDERS. ADY WELL. REMAINS NPO PER ORDERS. TEMETRY SHOWING HR SR AT THIS TIME. HOB UP SR UP C/L IN REACH. CONTINUE TO MONITOR.
[2016-04-29 04:00] VITALS: BP 111/77
[2016-04-29 07:00] LABS: BASOPHILS 0.4 % (0.0-2.0); HEMATOCRIT 45.1 % (42.0-54.0); HEMOGLOBIN 15.4 g/dL (13.5-17.5); IMMATURE GRANULOCYTES 0.3 % (0-5); LYMPHOCYTES 20.5 % (15-50); MCH 29.6 pg (26.0-34.0); MCHC 34.1 g/dL (31.0-37.0); MCV 86.6 fL (80.0-100.0); MONOCYTES 7.8 % (2-11); PLATELET COUNT 316 10x3/uL (130-400); RBC 5.21 10x6/uL (4.20-6.10); RDW 12.9 % (11.5-14.5); WBC 10.7 10x3/uL (4.8-10.8)
[2016-04-29 07:01] LABS: HEMOGLOBIN A1C 9.4 % (4.8-6.0)
[2016-04-29 07:13] VITALS: Ht 182.9 cm; Wt 77.6 kg
[2016-04-29 07:20] LABS: ANION GAP 13.2 mmol/L (8-16); BILIRUBIN - TOTAL 0.66 mg/dL (0.2-1.3); C-REACTIVE PROTEIN 8.5 mg/dL (0.0-0.9); CALCIUM 8.7 mg/dL (8.5-10.1); CARBON DIOXIDE 27.6 mmol/L (21.0-32.0); CREATININE - SERUM 1.2 mg/dL (0.6-1.3); POTASSIUM - SERUM 3.8 mmol/L (3.5-5.1); PROTEIN - SERUM 7.1 g/dL (6.4-8.2)
[2016-04-29 07:53] LABS: MAGNESIUM - SERUM 1.6 mg/dL (1.8-2.4); PHOSPHOROUS 2.9 mg/dL (2.5-4.9)
[2016-04-29 08:00] VITALS: BP 107/57
--- NOTE | 2016-04-29 09:17 | NUR ---
PT SITTING UP IN BED DENIES NEEDS
[2016-04-29 12:00] VITALS: BP 117/59
--- NOTE | 2016-04-29 12:22 | NUR ---
PT SITTING UP TO CHAIR. DR GRAF IN ROOM. WILL CONT TO MONITOR.
--- NOTE | 2016-04-29 14:50 | NUR ---
Nutrition education for DMT2: Pt refuses education due to being homeless. Pt states he eats what he can when he can. RDN left diet information and name and phone number in pts room RDN following.
[2016-04-29 17:52] VITALS: BP 113/79
--- NOTE | 2016-04-29 18:19 | NUR ---
PT SITTING UP TO CHAIR DENIES NEEDS WILL CONT TO MONITOR.
--- NOTE | 2016-04-29 20:50 | NUR ---
PT AWAKE, ALERT, ORIENTED, HAS BEEN AMBULATING AROUND THE UNIT. PT IS REQUESTING TO HAVE HIS IV REMOVED SO HE CAN SLEEP TONIGHT. PT STATES HE IS BEING D/C'D TOMORROW AND WANTS THE IV OUT NOW. WE HAVE DISCUSSED PTS GLUCOSE, AND HIS NEED TO BE COMPLIANT AND CONSISTENT WITH HIS TX , DIET, AND INSULIN. PT STATES HE IS HOMELESS AT THIS POINT IN TIME. PT STATES HE HAS NO MEANS OF BEING ABLE TO USE INSULIN. I HAVE SUGGESTED TO PT TO REQUEST HIS LANTUS PEN AND VIAL OF HUMULIN R UPON D/C. PT STATES HE HAS NO NEEDLES. PTS FSBS AT THIS TIME IS 444, HUMULIN R 20 UNITS GIVEN WITH LANTUS. WILL CONTINUE TO MONITOR CLOSELY.
[2016-04-29 20:52] VITALS: BP 115/78
[2016-04-30 01:33] VITALS: BP 100/71; BP 114/70
--- NOTE | 2016-04-30 01:39 | NUR ---
PT DID HAVE A HYPOGLYCEMIC EPISODE AFTER HIS BEDTIME INSULIN DOSE. CED CRACKERS, PUDDING, AND ORANGE JUICE GIVEN. FSBS RECHECKED WNL. PT HAS REMOVED HIS TELEMETRY, REFUSING TO WEAR IT. PT HAS AGREED TO LEAVE HIS IV/SL IN FOR NOW. CONTINUE TO MONITOR CLOSELY.
[2016-04-30 05:51] LABS: BASOPHILS 0.3 % (0.0-2.0); EOSINOPHILS 3.3 % (0-7); HEMATOCRIT 38.9 % (42.0-54.0); HEMOGLOBIN 13.5 g/dL (13.5-17.5); IMMATURE GRANULOCYTES 0.3 % (0-5); LYMPHOCYTES 23.2 % (15-50); MCH 29.4 pg (26.0-34.0); MCHC 34.7 g/dL (31.0-37.0); MCV 84.7 fL (80.0-100.0); MEAN PLATELET VOLUME 9.7 fL (7.4-10.4); MONOCYTES 7.6 % (2-11); NEUTROPHILS 65.3 % (40-80); RBC 4.59 10x6/uL (4.20-6.10); RDW 12.6 % (11.5-14.5)
[2016-04-30 06:04] VITALS: BP 129/91
[2016-04-30 06:09] LABS: PLATELET COUNT 233 10x3/uL (130-400); WBC 7.2 10x3/uL (4.8-10.8)
[2016-04-30 06:11] LABS: ALBUMIN 2.6 g/dL (3.4-5.0); ALKALINE PHOSPHATASE 95 U/L (46-116); CALCIUM 8.8 mg/dL (8.5-10.1); CARBON DIOXIDE 28.2 mmol/L (21.0-32.0); CHLORIDE - SERUM 98 mmol/L (98-107); CREATININE - SERUM 0.9 mg/dL (0.6-1.3); MAGNESIUM - SERUM 1.4 mg/dL (1.8-2.4); PHOSPHOROUS 3.5 mg/dL (2.5-4.9); PROTEIN - SERUM 5.8 g/dL (6.4-8.2); SODIUM 132 mmol/L (136-145); UREA NITROGEN 19 mg/dL (7-18); eGFR NON AFRICAN AMERICAN > 90 mL/min (90-120)
[2016-04-30 06:17] LABS: ALT (SGPT) 69 U/L (10-68); CALC OSMOLALITY 275 mosm/kg (275-300); GLUCOSE 269 mg/dL (74-106); POTASSIUM - SERUM 4.5 mmol/L (3.5-5.1)
--- NOTE | 2016-04-30 06:42 | NUR ---
PT STATES HE FEELS HIS GLUCOSE IS LOW, BUT LAB SHOWS 269. PT WANTS TO HOLD HIS HUMULIN INJ UNTIL BREAKFAST AND HAVE HIS GLUCOSE RECHECKED THEN. DENIES ANY OTHER NEEDS. CONTINUE TO MONITOR CLOSELY.
[2016-04-30] MEDS ORDERED: BETAPACE 80 MG80 MG PO (10:34)
[2016-04-30 11:31] VITALS: BP 134/96
--- NOTE | 2016-04-30 11:35 | NUR ---
PATIENT HAS BEEN UP ALL AM. BEEN OUTSIDE TO SMOKE. RECEIVED ORDERS FOR DISCHARGE.
--- NOTE | 2016-04-30 12:24 | NUR ---
Patient Name: ORIANA WILSON Admission Status: ER Accout number: [id number] Admission Date: 04-28-2016 : 1960 Admission Diagnosis: Attending: ROHAN Current LOS: 2 Anticipated DC Date: 04-30-2016 Planned Disposition: Home Primary Insurance: [employer] MEDICARE ADV LATE ENTRY: Discharge Planning Comments: * Is the patient Alert and Oriented? Yes 0 * How many steps to enter\exit or inside your home? NONE 0 * PCP DR. MORAIMA EDMONDSON 0 * [facility]acy [facility] 0 * Preadmission Environment Home Alone 0 * ADLs Independent 0 * Equipment Cane Glucometer Walker 0 * Other Equipment NO MEDICAL EQUIPMENT PROVIDER PREFERENCE 0 * List name and contact numbers for known caregivers / representatives who currently or will assist patient after discharge: TERA WILSON, , 0 * Community resources currently utilized None 0 * Please name any agencies selected above. NONE 0 * Additional services required to return to the preadmission environment? No 0 * Can the patient safely return to the preadmission environment? Yes 0 * Has this patient been hospitalized within the prior 30 days at any hospital? Yes 0 CM MET WITH PT IN ROOM TO DISCUSS DISCHARGE PLANNING AND NEEDS. PT REPORTS LIVING AT HOME INDEPENDENTLY AND ALONE; PT REPORTS LIVING IN A [facility] ROOM FOR NOW AND HAS LIVED IN HIS CAR IN THE PAST. PT HAS CANE AND WALKER THAT HE USES ON [place]; PT HAS A GLUCOMETER IS PACKED AWAY IN A STORAGE. PT HAS NO MEDICAL EQUIPMENT PROVIDER PREFERENCE. PT HAS NO OUTSIDE SERVICES ASSISTING IN THE HOME. CM DISCUSSED AVAILABILITY OF HOME HEALTH, REHAB SERVICES AND MEDICAL EQUIPMENT. PT DENIES DISCHARGE NEEDS, REPORTS HIS CAR IS HERE AND HE WILL BE DRIVING HIMSELF BACK TO THE [facility] ON [facility]. IMPORTANT MESSAGE FROM MEDICARE PROVIDED AND EXPLAINED. CM PROVIDED AND DISCUSSED REFERRALS TO [facility] FOR POSSIBLE ASSISTANCE WITH STABALIZATION OF LIVING SITUATION AND COMMUNITY SERVICES ORGANIZATION FOR POSSIBLE ASSISTANCE OF RAPID REHOUSING PROGRAM. PT IS FAMILIAR WITH [facility] AND SERVICES PROVIDED. PT DENIED FURTHER DISCHARGE NEEDS. Body Art Technician: Luis Gallego
--- NOTE | 2016-05-05 14:38 | HP ---
PATIENT: ORIANA WILSON JR MEDICAL RECORD: [id number] ACCOUNT: [id number] LOCATION:[address] : 62 ADMISSION DATE: 04/28/16 HISTORY AND PHYSICAL EXAMINATION DIAGNOSES: 1. Angina. 2. Coronary artery disease. 3. Recent 2-vessel PTCA stent, noncompliant with Plavix with acute clot LAD, treated by Dr. Gunn this weekend. 4. Abnormal ECG, ST elevation. 5. Hypertension. 6. Hyperlipidemia. 7. Diabetes. HISTORY OF PRESENT ILLNESS: This is a gentleman who presented with acute coronary syndrome, non-Q-wave myocardial infarction, found to have ____ vessel coronary artery disease, underwent PTCA stent, was discharged home with the addition of aspirin and Plavix to his medical regimen, for which he was noncompliant. He represented to this weekend with acute ST elevation anteriorly. He went to the cardiac catheterization lab and after anticoagulant therapy, wide patency of the vessels, the ST elevation, however, persisted, but he was pain free. He did not require second intervention at that time. He now presents with recurrent chest pain. His EKG is relatively unchanged from the previous EKG with continued ST elevation. He is quite tachycardic over 100 beats per minute. He has been taking the Plavix with no aspirin. It is questionable if he has been taking any of his other medications, which include Toprol, Norvasc, lisinopril, Crestor. PHYSICAL EXAMINATION: GENERAL APPEARANCE: Well-nourished, well-developed, appears stated age. Level of distress, comfortable. PSYCHIATRIC: Mental status, alert, normal affect. Orientation, oriented to time, place and person. EYES: Lids and conjunctiva, noninjected. No discharge, no pallor. ENT: Lips, teeth, gums, normal dentition. Oropharynx, no cyanosis, no pallor. NECK: Carotid arteries, bilateral normal upstroke, no bruits, no thrills. JUGULAR VEINS: No jugular venous pressure or distention. CERVICAL LYMPH NODES: Nontender, nonenlarged. THYROID: Not enlarged. Nontender. No nodules. LUNGS: Respiratory effort, unlabored. CHEST: Normal curvature. No thoracic deformity. No chest wall tenderness. Percussion, resonant. Auscultation, clear. No wheezes, no rales, no rhonchi. CARDIOVASCULAR: Precordial exam, nondisplaced. No heaves or pericardial thrills. Rate and rhythm, regular. Heart sounds, normal S1, normal S2. No S3, no gallop, no rub. Systolic murmur, not heard. Diastolic murmur, not heard. EXTREMITIES: No cyanosis, no edema. Peripheral pulses, full and equal in all extremities, except as noted. No bruits appreciated. ABDOMEN: Soft, nondistended. Normal aorta. No bruit. Nontender. No masses. Liver, nontender, no hepatomegaly. Spleen, nontender, no splenomegaly. MUSCULOSKELETAL: No joint tenderness. No joint swelling. No erythema. NEUROLOGICAL: Normal gait, normal strength, normal tone. SKIN: Warm and dry. REVIEW OF SYSTEMS: The patient reports easy bruising but reports no swollen HISTORY AND PHYSICAL [id number] ORIANA WILSON glands. The patient reports no fever, no night sweats, no significant weight gain, no significant weight loss. No significant exercise tolerance. The patient reports no dry eyes, no irritation, no vision change. Patient reports no difficulty hearing and no ear pain. Patient reports no frequent nose bleeds or nose and sinus problems. Patient reports on arm pain on exertion. No shortness of breath while lying down. No history of heart murmur. Patient reports no cough, no wheezing or coughing up blood. Patient reports no abdominal pain, no vomiting. Normal appetite. No diarrhea and not vomiting blood. No nausea and no constipation. Patient reports no incontinence. No difficulty urinating. No hematuria. No increased frequency. Patient reports no muscle aches. No weakness, no arthralgias, no back pain. No swelling of the extremities. Patient reports no abnormal mole, no jaundice, no rashes. Reports no loss of consciousness. No weakness and no numbness. No seizures, dizziness, or headaches. The patient reports no depression, no sleep disturbance, feeling safe in a relationship and no alcohol abuse. Patient reports on fatigue. Reports no runny nose or sinus pressure. No itching, no hives, and no frequent sneezing. OVERALL IMPRESSION: Gross medical noncompliance after cardiac intervention. At this time, the EKG is really unchanged, did not see the need for repeat cardiac catheterization. We will restart his medications, especially his Toprol, try to get better heart rate and blood pressure control at this time and see if the chest discomfort resolves with this. TRANSINT:[id number] Voice Confirmation ID: [id number] DOCUMENT ID: [id number] JANNA GRAF MD at 1438 CC: [id number] DICTATION DATE: 04/28/16 1305 [employer] MANAGER: 04/28/16 1333 DIS IN 04/30/16 [place] [id number] [place] [id number]
== END 2016-04-30 12:20 | disposition home or self-care (01) ==
LOC: D.ER 12:18 → D.M2 13:24 → OBSVTIME 13:24 → D.M2 13:24
PROVIDERS: Emergency Medicine; Family Medicine; ADMIT Internal Medicine Interventional Cardiology
DX: I25.119 Atherosclerotic heart disease of native coronary artery with unspecified angina pectoris (principal); Z95.5 Presence of coronary angioplasty implant and graft; Z91.14 Patient's other noncompliance with medication regimen; Z59.0 Homelessness; R00.0 Tachycardia, unspecified; E13.10 Other specified diabetes mellitus with ketoacidosis without coma; N17.9 Acute kidney failure, unspecified; J44.9 Chronic obstructive pulmonary disease, unspecified; I10 Essential (primary) hypertension; I48.91 Unspecified atrial fibrillation; E78.5 Hyperlipidemia, unspecified; I25.2 Old myocardial infarction; R94.31 Abnormal electrocardiogram [ECG] [EKG]; Z86.73 Personal history of transient ischemic attack (TIA), and cerebral infarction without residual deficits

== ENCOUNTER 2016-06-24 08:27 | Outpatient (CLI) | payer MEDICARE, MEDICAID ==
[~2016-06-24] VITALS: Ht 182.9 cm; Wt 77.3 kg
--- NOTE | ~2016-06-24 | HEMODYNAMI ---
PATIENT:ORIANA WILSON JR MEDICAL RECORD: [id number] : 62 LOCATION:[facility] D.211[facility]# [id number] ADMISSION DATE: 06/24/16 Generatedon:06/24/201615:56 Patient name: ORIANA WILSON Patient #: [id number] SSN: [id number] : 1960 Date of study: 06/24/2016 Page: Of Hemodynamic Procedure Report Patient Data Patient Demographics Procedure consent was obtained First Name: ORIANA Gender: Male Last Name: STEVE Suffix: Jr Head Initial: Venita : 1960 Patient #: [id number] Age: 55 year(s) Race: SSN: [id number] Additional ID: [id number] Contact details Address: [facility] State: [place] City: [place] Zip code: [address] Past Medical History History of disease Date Diagnosis Comments Chronic lung disease->COPD COPD Hypertension Diabetes CAD Allergies Allergen Reaction Date Comments Reported Other allergy 04/20/2016 influenza virus vaccine specific Other allergy 06/24/2016 Flu vaccine Admission Admission Data Admission Date: 06/24/2016 Admission Time: 9:36 Admit Source: Other Room #: D.2116 Height (in.): 72 BSA: 1.99 (m2) Height (cm.): 182.88 BMI: 23.08 (kg/m2) Weight (lbs.): 170.2 Weight (kg.): 77.2 Lab Results Lab Result Date: 06/24/2016 Lab Result Time: 0:00 Biochemistry Name Units Result Min Max BUN mg/dl 12 --(-*--)-- 7 18 Creatinine mg/dl 1 --(--*-)-- 0.6 1.3 CBC Name Units Result Min Max Hemoglobin g/dl 15.9 --(--*-)-- 13.5 17.5 Procedure Procedure Types Cath Procedure Diagnostic Procedure LHC Coronaries only PCI Procedure Coronary Stent Initial PTCA Additional Miscellaneous Procedures Moderate Sedation up to 45 minutes Procedure Description Procedure Date Procedure Date: 06/24/2016 Procedure Start Time: 15:25 Procedure End Time: 15:55 Procedure Staff Name Function Bon Agarwal MD Performing Physician Juliocesar Sterling RN Nurse Rj Heart RT Scrub Shmuel Guerrero RT Monitor Procedure Data Cath Procedure Fluoroscopy Diagnostic fluoroscopy Total fluoroscopy Time: 11 time: 11 min min Diagnostic fluoroscopy Total fluoroscopy dose: dose: 501.93 mGy 501.93 mGy Contrast Material Contrast Material Type Amount (ml) Isovue 300 122 Entry Location Entry Primary Successful Side Size Upsize Upsize Entry Closure Succes sful Closure Location (Fr) 1 (Fr) 2 (Fr) Remarks Device Remarks Femoral Right 6 Fr Exoseal artery Short Estimated blood loss: 10 ml Diagnostic catheters Device Type Used For End Catheter Placement Diagnostic Infinity 5Fr Procedure 3DRC catheter Procedure Complications No complications Procedure Medications Medication Administration Route Dosage Oxygen NC 2 l/min Heparin Flush Bag added to field 2 bags (1000units/500ml NS) 0.9% NaCl I.V. 100 ml/hr Plavix P.O. 75 mg Fentanyl I.V. 50 mcg Versed I.V. 1 mg Fentanyl I.V. 50 mcg Versed I.V. 1 mg Fentanyl I.V. 50 mcg Fentanyl I.V. 50 mcg Versed I.V. 1 mg Heparin Bolus I.V. 4000 units Hemodynamics Rest BSA: 1.99 (m2) HGB: 15.9 (g/dl) O2 Consumption: Estimated: 242.73 (ml/min) O2 Co nsumption indexed: Estimated:121.97 (ml/min/m) Heart Rate: 79 (bpm) Snapshots Pre Cath Intra NCS Post Cath Vital Signs Time Heart Resp SPO2 NIBP (mmHg) Rhythm Pain Sedation Rate (ipm) (%) Status Level (bpm) 14:47:00 81 17 98 143/100(107) NSR 0 (11) 10(A) , No pain 14:51:08 92 22 94 136/96(119) NSR 0 (11) 10(A) , No pain 14:55:18 88 16 94 136/90(111) NSR 0 (11) 10(A) , No pain 14:59:28 77 18 98 137/91(110) NSR 0 (11) 10(A) , No pain 15:03:36 80 17 99 134/91(111) NSR 0 (11) 10(A) , No pain 15:07:41 82 16 97 131/101(115) NSR 0 (11) 10(A) , No pain 15:11:47 83 18 99 139/93(112) NSR 0 (11) 10(A) , No pain 15:15:55 83 16 98 135/99(112) NSR 0 (11) 9(A) , No pain 15:20:03 81 16 98 135/94(113) NSR 0 (11) 9(A) , No pain 15:24:11 72 16 99 147/93(114) NSR 0 (11) 9(A) , No pain 15:28:20 82 17 98 142/93(121) NSR 0 (11) 9(A) , No pain 15:32:32 83 17 98 129/87(105) NSR 0 (11) 9(A) , No pain 15:36:40 89 18 98 127/85(108) NSR 0 (11) 9(A) , No pain 15:40:48 89 16 97 135/87(111) NSR 0 (11) 9(A) , No pain 15:44:56 81 16 98 135/95(103) NSR 0 (11) 9(A) , No pain 15:49:02 81 17 98 138/94(120) NSR 0 (11) 9(A) , No pain 15:53:12 75 18 98 138/97(128) NSR 0 (11) 9(A) , No pain Medications Time Medication Route Dose Verified Delivered Reason Notes Effectiveness by by 14:51:42 Oxygen NC 2 Juliocesar Gandara Per physician l/min Asher Sterling RN RN 14:51:51 Heparin Flush added 2 Juliocesar Gandara used for Bag to bags Asher Sterling RN procedure (1000units/500ml field RN NS) 14:52:02 0.9% NaCl I.V. 100 Juliocesar Gandara Per physician ml/hr Asher Sterling RN RN 14:57:24 Plavix P.O. 75 mg Juliocesar Gandara for Asher Sterling RN antiplatelet RN therapy 15:12:02 Fentanyl I.V. 50 Juliocesar Gandara for sedation mcg Asher Sterling RN RN 15:12:10 Versed I.V. 1 mg Juliocesar Juliocesar for sedation Asher Sterling RN RN 15:16:53 Fentanyl I.V. 50 Juliocesar Juliocesar for sedation mcg Asher Sterling RN RN 15:17:05 Versed I.V. 1 mg Juliocesar Juliocesar for sedation Asher Sterling RN RN 15:21:28 Fentanyl I.V. 50 Juliocesar Juliocesar for sedation mcg Asher Sterling RN RN 15:23:22 Fentanyl I.V. 50 Juliocesar Juliocesar for sedation mcg Asher Sterling RN RN 15:27:28 Versed I.V. 1 mg Juliocesar Juliocesar for sedation Asher Sterling RN RN 15:30:31 Heparin Bolus I.V. 4000 Juliocesar Juliocesar for units Asher Sterling RN anticoagulation supervisor tunnel heading Log Time Note 14::53 Diagnostic Cath Status : Elective 14:25:44 Admit Source: Other 14:25:51 Rj Heart RT(R) (CV) sent for patient. Start room use. 14::53 Time tracking: Regular hours 14:25:58 Plan of Care:Hemodynamics will remain stable., Cardiac rhythm will remain stable., Comfort level will be maintained., Respiratory function will remain adequate., Patient/ family verbilizes understanding of procedure., Procedure tolerated without complication., Recovers from procedure without complications.. 14:26:40 Lab Result : BUN 12 mg/dl 14:26:40 Lab Result : Creatinine 1 mg/dl 14:26:40 Lab Result : Hemoglobin 15.9 g/dl 14:45:56 Patient received from PCU to [facility] 3 Alert and oriented. Tansferred to table in Supine position. 14:45:57 Warm blankets applied, and nura hugger turned on for patient comfort. 14:45:58 Correct patient and procedure confirmed by team. 14:46:00 Signed procedure consent form obtained from patient. 14:46:01 ECG and BP/O2 sat monitors applied to patient. 14:46:02 Vital chart was started 14:46:03 Baseline sample Acquired. 14:46:07 Rhythm: sinus rhythm 14:46:09 Full Disclosure recording started 14:51:42 Oxygen 2 l/min NC was administered by Juliocesar Sterling RN; Per physician; 14:51:51 Heparin Flush Bag (1000units/500ml NS) 2 bags added to field was administered by Juliocesar Sterling RN; used for procedure; 14:52:02 0.9% NaCl 100 ml/hr I.V. was administered by Juliocesar Sterling RN; Per physician; 14:54:19 H&P Date Dictated: 06/24/2016 Within 30 days and on chart.. 14:54:20 Pre-procedure instructions explained to patient. 14:54:20 Pre-op teaching completed and patient verbalized understanding. 14:54:29 Family unavailable. 14:54:31 Patient NPO since Breakfast. 14:54:44 Patient allergic to Other allergyFlu vaccine 14:54:46 Is the patient allergic to Iodine/contrast media? No. 14:54:47 Is patient on blood thinner?Yes 14:54:50 ACC The patient was administered the following blood thiners within the last 24 hours: ACCPlavix 14:54:51 Patient diabetic? Yes. 14:54:52 If diabetic: On Metformin? Yes 14:54:55 If on Metformin: Last Dose? 06/23/2016 14:54:58 Previous problem with sedation/anesthesia? No ? 14:54:59 Snore? Yes 14:55:00 Sleep apnea? No 14:55:01 Deviated septum? No 14:55:01 Opens mouth fully? Yes 14:55:02 Sticks out tongue? Yes 14:55:03 Airway obstruction? No ? 14:55:05 Dentures? No ? 14:55:11 Pre procedure: right dorsailis pedis pulse 1+ Palpable, but thready & weak; easily obliterated 14:55:15 Patient pain scale 0/10 ?. 14:55:23 IV patent on arrival in left antecubital with 0.9% NaCl at [facility]. 14:55:39 Lab results completed and on chart. 14:55:54 Right groin area was prepped with chlora-prep and draped in sterile fashion 14:55:55 Alarms reviewed by R. N. 14:55:55 Sharps counted by scrub and verified by R.N. 14:56:00 Use device set Femoral PCI 14:56:01 Tegaderm 4 x 4 opened to sterile field. 14:56:17 Acist Syringe opened to sterile field. 14:56:17 Acist Hand Control opened to sterile field. 14:56:19 Acist Manifold opened to sterile field. 14:56:24 Bag Decanter opened to sterile field. 14:56:25 Merit BasixCompak Inflation Kit opened to sterile field. 14:56:26 St Nathan 260cm J .035 wire opened to sterile field. 14:56:26 Terumo 6Fr Aurora Sheath opened to sterile field. 14:56:27 Medline Cath Pack opened to sterile field. 14:57:24 Plavix 75 mg P.O. was administered by Juliocesar Sterling RN; for antiplatelet therapy; 14:58:56 Zero performed for pressure channel P1 14:58:59 Zero performed for pressure channel P1 15:00:04 Cordis 6FR XBLAD 3.5 guide catheter opened to sterile field. 15:09:59 Patient Weight : 77.2 kg 15:10:10 Patient Height : 182.88 cm 15:10:50 Physician arrived 15:10:50 --------ALL STOP TIME OUT------ 15:10:50 Final Timeout: patient, procedure, and site verified with staff and physician. All members of the team are in agreement. 15:10:52 Right groin site verified by team. 15:10:55 Physical assessment completed. ASA score P 2 - A patient with mild systemic disease as per Bon Agarwal MD. 15:10:58 Sedation plan: IV Moderate Sedation Versed, Fentanyl 15:12:02 Fentanyl 50 mcg I.V. was administered by Juliocesar Sterling RN; for sedation; 15:12:10 Versed 1 mg I.V. was administered by Juliocesar Sterling RN; for sedation; 15:16:53 Fentanyl 50 mcg I.V. was administered by Juliocesar Sterling RN; for sedation; 15:17:05 Versed 1 mg I.V. was administered by Juliocesar Sterling RN; for sedation; 15:21:28 Fentanyl 50 mcg I.V. was administered by Juliocesar Sterling RN; for sedation; 15:23:22 Fentanyl 50 mcg I.V. was administered by Juliocesar Sterling RN; for sedation; 15:25:23 Procedure started. 15:25:25 Local anesthetic to right femoral artery with Lidocaine 2% by Bon Agarwal MD.INITIAL ACCESS ONLY 15:25:32 A 6 Fr Short sheath was inserted into the Right Femoral artery 15:26:07 A Diagnostic Infinity 5Fr 3DRC catheter was advanced over the wire and used for Procedure. 15:26:52 RCA angiography performed. 15:27:14 Catheter exchanged over wire. 15:27:21 6 Fr xblad 3.5 guide catheter was inserted over the wire 15:27:28 Versed 1 mg I.V. was administered by Juliocesar Sterling RN; for sedation; 15::31 Singleton Whisper J 300cm 0.014 guide wire opened to sterile field. 15:27:58 LCA angiography performed. 15:29:06 Singleton Whisper J 300cm 0.014 guide wire opened to sterile field. 15:30:23 whisper wire advanced. 15:30:31 Heparin Bolus 4000 units I.V. was administered by Juliocesar Sterling RN; for anticoagulation; 15:30:[address] wire in LAD 15:30:36 whisper wire advanced. 15:30:43 2nd wire in the diag 15:31:43 Wire advanced across lesion. 15:31:45 Inflation Number: 1 A Promus Premier OTW 3.0 x 12 stent was prepped and advanced across the 1st Diag. The stent was deployed at 15 CARLIE for 0:10 (min:sec). 15:32:05 Inflation number: 2 The stent balloon was then re-inflated across the 1st Diag to 21 CARLIE for 0:10 (min:sec). 15:32:34 Stent catheter was removed intact over wire. 15:32:44 wire removed out of the diag. 15:35:44 The Euphora 2.5 x 15 Balloon was advanced and then removed because of failure to cross lesion 15:38:03 Balloon removed over the wire. 15:38:19 Stockdale KVK TEAM Choice PT Extra Support J 300cm .014 gu opened to sterile field. 15:39:47 pt es wire advanced. 15:39:48 Wire advanced across lesion. 15:40:06 whisper wire left in as a laquita wire. 15:42:17 Inflation number: 1 A Euphora 1.5 x 15 Balloon was prepped and advanced across the Prox LAD, then inflated to 21 CARLIE for 0:10 (min:sec). 15:42:26 Inflation number: 2 The Euphora 1.5 x 15 Balloon was reinflated across the Prox LAD, to 21 CARLIE for 0:00 (min:sec). 15:44:09 Balloon removed over the wire. 15:45:51 Inflation number: 3 A [place] Sci [place] 1.5 X 15 balloon was prepped and advanced across the Prox LAD, then inflated to 21 CARLIE for 0:10 (min:sec). 15:46:21 Inflation number: 4 The [place] Sci [place] 1.5 X 15 balloon was reinflated across the Prox LAD, to 21 CARLIE for 0:10 (min:sec). 15:46:34 whisper wire removed. 15:47:26 Balloon removed over the wire. 15:49:01 Inflation number: 5 A Euphora 2.5 x 15 Balloon was prepped and advanced across the Prox LAD, then inflated to 21 CARLIE for 0:10 (min:sec). 15:49:57 Inflation number: 6 The Euphora 2.5 x 15 Balloon was reinflated across the Prox LAD, to 21 CARLIE for 0:10 (min:sec). 15:50:29 Balloon removed over the wire. 15:50:36 Wire removed. 15:50:36 Guide catheter removed. 15:50:41 Cordis 6Fr Exoseal opened to sterile field. 15:50:51 Sheath removed intact; hemostasis achieved with Exoseal to the Right Femoral artery. 15:51:03 Procedure ended.(Physican Out) 15:51:29 Fluoroscopy time 11.00 minutes. 15:51:35 Flurop Dose total: 501.93 15:51:35 Fluoroscopy dose: 501.93 mGy 15:51:38 Contrast amount:Isovue 300 122ml. 15:51:39 Sharps counted by scrub and verified by R.N. 15:51:41 Insertion/operative site no bleeding no hematoma. 15:51:43 Post-op/insertion site Right Femoral artery dressed using a 4 x 4 and Tegaderm. 15:51:47 Post right femoral artery:stable, soft, clean and dry 15:51:51 Post Procedure Pulses reassessed and unchanged 15:51:54 Post-procedure physical assessment completed. ASA score P 2 - A patient with mild systemic disease as per Bon Agarwal MD. 15:51:57 Post procedure rhythm: unchanged. 15:51:59 Estimated blood loss: 10 ml 15:52:01 Post procedure instruction explained to patient.Patient verbalizes understanding. 15:52:01 Patient needs reinforcement of post procedure teaching. 15:52:59 Procedure type changed to Cath procedure, Diagnostic procedure, LHC, Coronaries only, PCI procedure, Coronary Stent Initial, PTCA Additional, Miscellaneous Procedures, Moderate Sedation up to 45 minutes 15:55:15 Procedure and supply charges have been captured, reviewed, submitted and are correct. 15:55:17 Procedure Complication : No complications 15:55:20 Vital chart was stopped 15:55:20 See physician's report for complete and final results. 15:55:22 Report given to PCU. 15:55:25 Patient transfered to PCU with Stretcher. 15:55:27 Procedure ended. 15:55:27 Full Disclosure recording stopped 15:56:22 End room use (Document Last) Intervention Summary Intervention Notes Time ActionType Lesion and Equipment Action# Pressure Duration Attributes Used 15:31:45 Place stent 1st Diag Promus 1 15 00:10 Premier OTW 3.0 x 12 stent 15:32:05 Reinflate 1st Diag Promus 2 21 00:10 stent Premier balloon OTW 3.0 x 12 stent 15:35:44 Discard Euphora Balloon 2.5 x 15 Balloon 15:42:17 Inflate Prox LAD Euphora 1 21 00:10 balloon 1.5 x 15 Balloon 15:42:26 Reinflate Prox LAD Euphora 2 21 00:00 balloon 1.5 x 15 Balloon 15:45:51 Inflate Prox LAD [place] 3 21 00:10 balloon Sci [place] 1.5 X 15 balloon 15:46:21 Reinflate Prox LAD [place] 4 21 00:10 balloon Sci [place] 1.5 X 15 balloon 15:49:01 Inflate Prox LAD Euphora 5 21 00:10 balloon 2.5 x 15 Balloon 15:49:57 Reinflate Prox LAD Euphora 6 21 00:10 balloon 2.5 x 15 Balloon Device Usage Item Name Manufacture Quantity Catalog Number Hospital Part Current [facility] Lot# / Charge Number Stock Stock Serial# Code Tegaderm 4 1 [id number] [id number] 5 x 4 Acist Acist 1 78531 699199 408958 248577 20 Syringe FoodText Systems TrustHop Acist Hand Acist 1 71577 304145 541268 140633 5 Control Medical Systems Inc Acist Acist 1 49269 870415 181120 790733 5 ProQuo Systems Inc Bag Microtek 1 2002S 301614 55345 083000 5 Ayondo Inc. [facility] 1 [id number] 976441 037006 785655 15 BasixCompak Medical Inflation Kit [address] [facility] Nathan 1 807213 184987 872852 160634 30 260cm J .035 wire Terumo 6Fr Terumo 1 HDX810 479654 366009 773018 40 Aurora Sheath Medline Cardinal 1 [id number] 002875 81290 706413 5 Cath Pack Health Cordis 6FR Cardinal 1 [id number] 777025 786721 475116 10 XBLAD 3.5 Health guide catheter Singleton Singleton 2 [id number] 773386 730429 620274 5 Whisper J Vascular 300cm 0.014 guide wire Promus [place] 1 [id number] 844179 107169 5 [id number] Premier OTW Scientific 3.0 x 12 stent Euphora 2.5 Medtronic 1 [id number] 431069 465811 931313 5 [id number] x 15 Balloon Stock[place] Sci Stock[place] 1 [id number] 435867 208599 129994 5 Choice PT Scientific Extra Support J 300cm .014 gu Euphora 1.5 Medtronic 1 [id number] 229942 944271 471301 5 [id number] x 15 Balloon [place] Sci [place] 1 [id number] 892969 918572 760630 1 [id number] Visionarity 1.5 X 15 balloon Cordis 6Fr Cardinal 1 EX600 707697 472479 401924 10 Spotify Health Diagnostic Cardinal 1 [id number] 011187 098096 507685 9 Hug Energy 5Fr 3DRC catheter Signature Audit [place] Stage Time Signature Unsigned Intra-Procedure 06/24/2016 Shmuel Guerrero 3:56:41 PM RT(R) Signatures Monitor : Shmuel Guerrero RT Signature : Date : Time : [facility] [address] [place] [address]
[~2016-06-24 08:27] MED LIST changes: +BETAPACE 80 MG80 MG PO; +NORVASC10 MG PO; -NORVASC5 MG PO
[2016-06-24 09:00] LABS: BASOPHILS 0.5 % (0-2); EOSINOPHILS 1.5 % (0-7); HEMOGLOBIN 15.9 g/dL (13.5-17.5); IMMATURE GRANULOCYTES 0.2 % (0-5); LYMPHOCYTES 17.9 % (15-50); MCH 30.7 pg (26.0-34.0); MCHC 35.3 g/dL (31.0-37.0); MCV 86.9 fL (80.0-100.0); MEAN PLATELET VOLUME 9.6 fL (7.4-10.4); NEUTROPHILS 72.9 % (40-80); PLATELET COUNT 221 10x3/uL (130-400); RBC 5.18 10x6/uL (4.20-6.10); RDW 13.6 % (11.5-14.5)
[2016-06-24 09:13] LABS: ALBUMIN 3.4 g/dL (3.4-5.0); ALKALINE PHOSPHATASE 71 U/L (46-116); ALT (SGPT) 25 U/L (10-68); CALC OSMOLALITY 285 mosm/kg (275-300); CALCIUM 9.3 mg/dL (8.5-10.1); CARBON DIOXIDE 24.5 mmol/L (21.0-32.0); CHLORIDE - SERUM 99 mmol/L (98-107); POTASSIUM - SERUM 4.4 mmol/L (3.5-5.1); PROTEIN - SERUM 6.9 g/dL (6.4-8.2); SODIUM 135 mmol/L (136-145); UREA NITROGEN 12 mg/dL (7-18); eGFR NON AFRICAN AMERICAN 83 mL/min (90-120)
[2016-06-24 09:16] LABS: GLUCOSE 380 mg/dL (74-106)
[2016-06-24 09:29] LABS: CHOL - HDL RATIO 4.6 ratio (2.3-4.9); CHOLESTEROL, TOTAL 241 mg/dL (0-200); CKMB 2.1 U/L (0.0-3.6); CREATINE KINASE 83 UL (21-232); HDL CHOLESTEROL 53 mg/dL (32-96); LDL CHOLESTEROL 157 mg/dL (0-100); TRIGLYCERIDE 156 mg/dL (30-200)
--- NOTE | 2016-06-24 10:33 | NUR ---
TRANSFER FROM ER BY W/C. RALFINTED TO ROOM. CALL LIGHT IN REACH. WILL CONT. PLAN OF CARE.
[2016-06-24 10:58] VITALS: BP 138/88; Ht 182.9 cm; Wt 77.3 kg
--- NOTE | 2016-06-24 18:03 | NUR ---
WITHOUT DISTRESS NOTED AT THIS TIME.
[2016-06-24 19:00] VITALS: BP 131/88
--- NOTE | 2016-06-24 19:50 | NUR ---
RESUMED CARE OF PT, LYING IN BED RESPIRATIONS EVEN AND UNLABORED ON 2LPM VIA NC. 96 SR ON TELEMETRY. RIGHT GROIN C/D/I, PEDAL PULSES PALPABLE. LEFT FOREARM INFUSING NS @ 100. NO NEEDS VOICED AT THIS TIME. BEDREST IS UP AT 2000. CALL LIGHT IN REACH. WILL CONTINUE TO MONITOR. SEE NURSE ASSESSMENT.
--- NOTE | 2016-06-24 20:09 | NUR ---
BEDREST IS UP, LEFT HAND SALINE LOCKED.
[2016-06-25] VITALS: BP 128/81
[2016-06-25 04:00] VITALS: BP 131/94
--- NOTE | 2016-06-25 09:43 | NUR ---
TELEMETRY SR. UP AMBULATING HALLWAY. GAIT STEADY. WILL CONT. PLAN OF CARE.
--- NOTE | 2016-06-25 11:05 | NUR ---
Patient Name: ORIANA WILSON Admission Status: ER Accout number: [id number] Admission Date: 06-24-2016 : 1960 Admission Diagnosis: Attending: ROHAN Current LOS: 1 Anticipated DC Date: 06-25-2016 Planned Disposition: Home Primary Insurance: [employer] ADV Discharge Planning Comments: * Is the patient Alert and Oriented? Yes 0 * How many steps to enter\exit or inside your home? 1 0 * PCP DR. MORAIMA EDMONDSON 0 * Pharmacy [facility] 0 * Preadmission Environment Homeless 0 * Other Environment WAS LIVING WITH A FRIEND AND ALSO STAYING IN HIS CAR WHEN HIS FRIENDS WILL NOT GIVE HIM A PLACE TO STAY. 0 * Facility Name DOES NOT UTILIZE [facility] 0 * ADLs Independent 0 * Equipment Cane Glucometer Walker 0 * Other Equipment NO MEDICAL EQUIPMENT PROVIDER PREFERENCE 0 * List name and contact numbers for known caregivers / representatives who currently or will assist patient after discharge: TERA WILSON, FATHER, 0 * Community resources currently utilized None 0 * Please name any agencies selected above. NONE 0 * Additional services required to return to the preadmission environment? No 0 * Can the patient safely return to the preadmission environment? Yes 0 * Has this patient been hospitalized within the prior 30 days at any hospital? No 0 CM MET WITH PT IN ROOM TO DISCUSS DISCHARGE PLANNING AND NEEDS. PT REPORTS LIVING ALONE AND INDEPENDENTLY; PT REPORTS LIVING WITH FRIENDS OR IN HIS CAR. PT PLANS TO DISCHARGE TO HIS CAR IN THE PARKING LOT AND IS DRIVING HIMSELF AT DISCHARGE. PT REPORTS HAVING ALL NEEDED MEDICAL EQUIPMENT WITH NO PROVIDER PREFERENCE. PT DOES NOT UTILIZE [facility] BUT IS AWARE OF WHERE IT IS AT IF NEEDED. PT HAS NO OUTSIDE SERVICES ASSISTING IN THE HOME. CM DISCUSSED AVAILABILITY OF HOME HEALTH, REHAB SERVICES AND MEDICAL EQUIPMENT. PT DENIES DISCHARGE NEEDS. Green Plumber: Luis Gallego
--- NOTE | 2016-06-25 12:24 | NUR ---
PT WAS ADVISED THAT HE COULD NOT LEAVE UNTIL 3:30PM TODAY HE DROVE HIMSELF TO HOSPITAL AND HE WAS PLACED UNDER ANESTHESIA ON 06/24/16 AND WOULD NOT BE ABLE TO DRIVE FOR 24 HOURS. I EXPLAINED TO PT THAT DR. GRAF WAS NOTIFIED OF THE SITUATION AND THAT DR. GRAF ADVISED PT NEEDED TO STAY UNTIL 3:30 PM TODAY. PT DID NOT WANT TO STAY UNTIL SAID TIME AND THEREFORE WAS INFORMED OF RISKS OF LEAVING AMA AND SIGNED AMA FORM PRESENTED BY ELIN/FINISHING TRIMMER NURSE WITH MYSELF WITNESS. PT LEFT FLOOR BY AMBULATION.
--- NOTE | 2016-06-25 12:28 | NUR ---
REFUSES TO WAIT 24 HRS POST PROCEDURE BEFORE DRIVING OFF PREMICES. DR GRAF NOTIFIED. DC PLANS GIVEN. UNDERSTANDING VOICED. AMA FORM SIGNED.
--- NOTE | 2016-06-30 18:07 | HP ---
PATIENT: ORIANA GARCIA JR MEDICAL RECORD: [id number] ACCOUNT: [id number] LOCATION:[address] : [birth year] ADMISSION DATE: 06/24/16 HISTORY AND PHYSICAL EXAMINATION ADMITTING DIAGNOSES: 1. Angina. 2. Coronary artery disease. 3. Recent percutaneous transluminal coronary angioplasty stent, LAD diagonal. 4. Hypertension. 5. Hyperlipidemia. HISTORY OF PRESENT ILLNESS: Mr. Garcia presents with 2 days of increasing anginal symptomatology. He initially had stenting done approximately 1 month ago at the LAD diagonal. He has had chest pain since. In reviewing the films, he has a plaque shift into the LAD itself. Most likely, this is the etiology of the ongoing angina. PHYSICAL EXAMINATION: GENERAL APPEARANCE: Well-nourished, well-developed, appears stated age. Level of distress, comfortable. PSYCHIATRIC: Mental status, alert, normal affect. Orientation, oriented to time, place and person. EYES: Lids and conjunctiva, noninjected. No discharge, no pallor. ENT: Lips, teeth, gums, normal dentition. Oropharynx, no cyanosis, no pallor. NECK: Carotid arteries, bilateral normal upstroke, no bruits, no thrills. JUGULAR VEINS: No jugular venous pressure or distention. CERVICAL LYMPH NODES: Nontender, nonenlarged. THYROID: Not enlarged. Nontender. No nodules. LUNGS: Respiratory effort, unlabored. CHEST: Normal curvature. No thoracic deformity. No chest wall tenderness. Percussion, resonant. Auscultation, clear. No wheezes, no rales, no rhonchi. CARDIOVASCULAR: Precordial exam, nondisplaced. No heaves or pericardial thrills. Rate and rhythm, regular. Heart sounds, normal S1, normal S2. No S3, no gallop, no rub. Systolic murmur, not heard. Diastolic murmur, not heard. EXTREMITIES: No cyanosis, no edema. Peripheral pulses, full and equal in all extremities, except as noted. No bruits appreciated. ABDOMEN: Soft, nondistended. Normal aorta. No bruit. Nontender. No masses. Liver, nontender, no hepatomegaly. Spleen, nontender, no splenomegaly. MUSCULOSKELETAL: No joint tenderness. No joint swelling. No erythema. NEUROLOGICAL: Normal gait, normal strength, normal tone. SKIN: Warm and dry. REVIEW OF SYSTEMS: The patient reports easy bruising but reports no swollen glands. The patient reports no fever, no night sweats, no significant weight gain, no significant weight loss. No significant exercise tolerance. The patient reports no dry eyes, no irritation, no vision change. Patient reports no difficulty hearing and no ear pain. Patient reports no frequent nose bleeds or nose and sinus problems. Patient reports on arm pain on exertion. No shortness of breath while lying down. No history of heart murmur. Patient reports no cough, no wheezing or coughing up blood. Patient reports no abdominal pain, no vomiting. Normal appetite. No diarrhea and not vomiting blood. No nausea and no constipation. Patient reports no incontinence. No difficulty urinating. No hematuria. No increased frequency. Patient reports no muscle aches. No weakness, no arthralgias, no back pain. No swelling of the HISTORY AND PHYSICAL [id number] ORIANA GARCIA extremities. Patient reports no abnormal mole, no jaundice, no rashes. Reports no loss of consciousness. No weakness and no numbness. No seizures, dizziness, or headaches. The patient reports no depression, no sleep disturbance, feeling safe in a relationship and no alcohol abuse. Patient reports on fatigue. Reports no runny nose or sinus pressure. No itching, no hives, and no frequent sneezing. OVERALL IMPRESSION: Escalating angina, significant disease of the left anterior descending. We will proceed with transcatheter revascularization of the left anterior descending. TRANSINT:[id number] Voice Confirmation ID: [id number] DOCUMENT ID: [id number] JANNA GRAF MD at 1807 CC: [id number] DICTATION DATE: 06/24/16 1558 CHIEF DISPATCHER SERVICE: 06/24/16 1606 DIS IN 06/25/16 [id number] [place] [id number]
--- NOTE | 2016-06-30 18:07 | OP ---
PATIENT NAME: ORIANA WILSON JR MEDICAL RECORD: [id number] :62 LOCATION:D.M2 D.2116 ADMISSION DATE:06/24/16 SURGEON: JANNA GRAF MD DATE OF OPERATION: 06/24/2016 PROCEDURES: 1. PTCA stent LAD diagonal. 2. PTCA, LAD. 3. Left heart catheterization. 4. Selective coronary angiography. 5. Left ventriculogram. INDICATION: Angina and coronary artery disease. PROCEDURE IN DETAIL: After informed consent was obtained and after detailed explanation of risks, benefits as well as alternative therapies, the patient elected to proceed with angiogram and angioplasty. The right femoral area was prepped and draped in normal sterile fashion. The right femoral artery was cannulated via modified Seldinger technique with placement of 6-Estonian sheath. All catheters exchanged through this sheath. FINDINGS: The left ventriculogram was performed in the standard 30-degree VELEZ view, reveals good cardiac wall motion throughout all segments. Overall ejection fraction estimated at 60%. SELECTIVE CORONARY ANGIOGRAPHY: 1. Left main showed no significant angiographic disease. 2. Left anterior descending has previously placed stents in the LAD and LAD diagonal: The diagonal was 95% restenosed, the LAD 80% restenosed. 3. Left circumflex has ____ irregularities, but no flow-limiting stenosis. 4. Right coronary has moderate irregularities, but no flow-limiting stenosis. PTCA STENT OF THE LAD AND DIAGONAL: The LAD diagonal was addressed with a 3.0 x 12 mm Promus stent, the LAD with a 1.5 and 2.5 balloon. Result was 0% residual throughout. OVERALL IMPRESSION: Successful percutaneous transluminal coronary angioplasty stent of the left anterior descending diagonal; PTCA of the left anterior descending going from 95% initial stenosis to 0% residual stenosis. TRANSINT:[id number] Voice Confirmation ID: [id number] DOCUMENT ID: [id number] JANNA GRAF MD at 1807 CC: [id number] DICTATION DATE: 06/24/16 1557 SUPERVISOR COMPOUNDING AND FINISHING: 06/24/16 2321 DIS IN 06/25/16 [address] [place] [address]
== END 2016-06-25 12:30 | disposition home or self-care (01) ==
LOC: D.ER 08:27 → D.OPS 08:27 → D.ER 09:36 → D.M2 09:36 → EDSTATUS 11:30 → D.OPS 15:57 → D.M2 06-25 12:30 → D.OPS 06-25 12:30
PROVIDERS: Family Medicine; Internal Medicine Interventional Cardiology
PROC: 4A023N7 Measurement of Cardiac Sampling and Pressure, Left Heart, Percutaneous Approach (ICD-10-PCS; 2016-06-24)
PROC: B2111ZZ Fluoroscopy of Multiple Coronary Arteries using Low Osmolar Contrast (ICD-10-PCS; 2016-06-24)
PROC: B2151ZZ Fluoroscopy of Left Heart using Low Osmolar Contrast (ICD-10-PCS; 2016-06-24)
PROC: 027034Z Dilation of Coronary Artery, One Artery with Drug-eluting Intraluminal Device, Percutaneous Approach (ICD-10-PCS; principal; 2016-06-24 11:30)
DX: I25.119 Atherosclerotic heart disease of native coronary artery with unspecified angina pectoris (principal); Z95.5 Presence of coronary angioplasty implant and graft; I10 Essential (primary) hypertension; E78.5 Hyperlipidemia, unspecified
CPT/HCPCS: 92920; 93458; C9600

== ENCOUNTER 2016-07-02 18:40 | Observation (INO) | payer MEDICARE, MEDICAID ==
[~2016-07-02] VITALS: Ht 182.9 cm; Wt 77.3 kg
--- NOTE | ~2016-07-02 | OP ---
PATIENT NAME: ORIANA WILSON JR MEDICAL RECORD: [id number] :62 LOCATION:D. D.2117 ADMISSION DATE:07/02/16 SURGEON: JOANN JEFFERY M.D. DATE OF OPERATION: 07/03/2016 REFERRING PHYSICIAN: None. PROCEDURES PERFORMED: 1. Selective coronary angiography. 2. Left heart catheterization with ventriculogram. INDICATION: A 55-year-old gentleman, presents with recurrent angina after undergoing stenting 1 week ago. He has not taken his Plavix for the past 2 days. EQUIPMENT USED: Diagnostic 5-English JL4, Drew right, pigtail catheter. TECHNIQUE: A 5-English sheath was inserted in retrograde fashion in the left common femoral artery. Next, selective coronary angiography was performed in standard 5-English JL4 and Drew right. Left heart catheterization performed using pigtail catheter. CORONARY ANATOMY: 1. Left main: Left main trunk is moderate in caliber. It gives rise to the LAD and circumflex. It has no obstruction. 2. LAD: This is a large caliber vessel extending to the apex. The proximal vessel has been stented. The first diagonal branch was stented as well. Both stents are widely patent. I do not see any evidence of restenosis or thrombosis. 3. Circumflex: This vessel is moderate in caliber. The mid vessel has been stented. The stent is widely patent. 4. Right coronary artery: This vessel is moderate in caliber and dominant. The distal vessel has been stented. The stent is widely patent. There is no evidence of thrombosis or restenosis. 5. Left ventricle: Left ventricle is normal in size. The apex is hypokinetic. Estimated ejection fraction is in the order of 50%. IMPRESSION: Widely patent stents in the LAD and diagonal without evidence of thrombosis. RECOMMENDATIONS: We will reload Plavix, continue with medical management. TRANSINT:[id number] Voice Confirmation ID: [id number] DOCUMENT ID: [id number] JOANN JEFFERY M.D. CC: [id number] DICTATION DATE: 07/03/16 1323 NAIL MACHINE OPERATOR: 07/04/16 0059 ADM IN [facility] [address] [place] [address]
--- NOTE | ~2016-07-02 | HEMODYNAMI ---
PATIENT:ORIANA WILSON JR MEDICAL RECORD: [id number] : 62 LOCATION[facility] D.2117 [id number] ADMISSION DATE: 07/02/16 Generatedon:07/03/201613:23 Patient name: ORIANA WILSON Patient #: [id number] SSN: [id number] : 1960 Date of study: 07/03/2016 Page: Of Hemodynamic Procedure Report Patient Data Patient Demographics Procedure consent was obtained First Name: ORIANA Gender: Male Last Name: STEVE Suffix: Jr Head Initial: Venita : 1960 Patient #: [id number] Age: 55 year(s) Race: SSN: [id number] Additional ID: [id number] Contact details Address: [facility] State: [place] City: [place] Zip code: [address] Past Medical History History of disease Date Diagnosis Comments Chronic lung disease->COPD COPD Hypertension Diabetes CAD Allergies Allergen Reaction Date Comments Reported Other allergy 04/20/2016 influenza virus vaccine specific Other allergy 06/24/2016 Flu vaccine Admission Admission Data Admission Date: 07/02/2016 Admission Time: 21:49 Arrival Date: 07/03/2016 Arrival Time: 21:49 Admit Source: Other Insurance Payor: Medicare Room #: D.2117 Height (in.): 72 BSA: 1.99 (m2) Height (cm.): 182.88 BMI: 23.06 (kg/m2) Weight (lbs.): 170 Weight (kg.): 77.11 Lab Results Lab Result Date: 07/03/2016 Lab Result Time: 0:00 Biochemistry Name Units Result Min Max BUN mg/dl 11 --(-*--)-- 7 18 Creatinine mg/dl 0.9 --(-*--)-- 0.6 1.3 CBC Name Units Result Min Max Hemoglobin g/dl 15.1 --(-*--)-- 13.5 17.5 Procedure Procedure Types Cath Procedure Diagnostic Procedure [facility] w/Coronaries Procedure Description Procedure Date Procedure Date: 07/03/2016 Procedure Start Time: 13:03 Procedure End Time: 13:19 Procedure Staff Name Function Rj Sly RT Monitor Jana Parra RT Scrub Aura Bermudez RN Nurse Tobi Cardenas MD Performing Physician Indication Angina Procedure Data Cath Procedure Fluoroscopy Diagnostic fluoroscopy Total fluoroscopy Time: 1.7 time: 1.7 min min Diagnostic fluoroscopy Total fluoroscopy dose: dose: 228.76 mGy 228.76 mGy Contrast Material Contrast Material Type Amount (ml) Isovue 300 65 Entry Location Entry Primary Successful Side Size Upsize Upsize Entry Closure Succes sful Closure Location (Fr) 1 (Fr) 2 (Fr) Remarks Device Remarks Femoral Left 6 Fr Exoseal artery Short Estimated blood loss: 10 ml Diagnostic catheters Device Type Used For End Catheter Placement Cordis 5Fr JL 4.0 Procedure Catheter (MP) Cordis 5Fr 3DRC Catheter Procedure (MP) Cordis 5Fr Pigtail Procedure Catheter (MP) Procedure Medications Medication Administration Route Dosage Oxygen NC 2 l/min Lidocaine 2% added to field 20 Heparin Flush Bag added to field 2 bags (1000units/500ml NS) 0.9% NaCl I.V. 100 ml/hr Versed I.V. 1 mg Fentanyl I.V. 50 mcg Versed I.V. 1 mg Fentanyl I.V. 50 mcg Fentanyl I.V. 50 mcg Plavix P.O. 75 mg Hemodynamics Rest BSA: 1.99 (m2) HGB: 15.1 (g/dl) O2 Consumption: Estimated: 247.38 (ml/min) O2 Co nsumption indexed: Estimated:124.31 (ml/min/m) Heart Rate: 85 (bpm) Pressure Samples Time Site Value (mmHg) Purpose Heart Use Rate(bpm) 13:05 AO 122/72(86) Snapshot 87 13:10 LV 141/-1,17 Snapshot 88 13:11 LV 128/-2,18 Pullback 96 13:11 AO 128/74(98) Pullback 96 Gradients Valve Time Site 1 Site 2 Mean SEP/DFP Peak To Heart Use (mmHg) (sec/min) Peak Rate (mmHg) (bpm) Aortic 13:11 LV AO 16 9 0 96 128/-2,18 128/74(98) Calculations Valve P-P Mean Valve Index Valve Source Name Gradient Area Flow (cm2) Aortic 0 16 0 16 Snapshots Pre Cath Intra NCS Post Cath Vital Signs Time Heart Resp SPO2 NIBP (mmHg) Rhythm Pain Sedation Rate (ipm) (%) Status Level (bpm) 12:43:42 89 17 97 132/88(112) NSR 0 (11) 10(A) , No pain 12:47:52 91 20 97 134/96(114) NSR 0 (11) 10(A) , No pain 12:52:02 95 23 95 134/88(110) NSR 0 (11) 10(A) , No pain 12:56:14 92 15 95 135/84(111) NSR 0 (11) 10(A) , No pain 13:00:22 89 20 96 137/96(117) NSR 0 (11) 9(A) , No pain 13:04:34 90 16 96 128/85(107) NSR 0 (11) 9(A) , No pain 13:08:42 91 16 95 131/90(111) NSR 0 (11) 9(A) , No pain 13:12:48 88 17 96 131/90(112) NSR 0 (11) 9(A) , No pain 13:16:57 90 17 97 139/88(113) NSR 0 (11) 10(A) , No pain Medications Time Medication Route Dose Verified Delivered Reason Notes Ef fectiveness by by 12:30:57 Oxygen NC 2 Tobi Buffie used for l/min Ronald Bermudez RN procedure 12:57:04 Lidocaine 2% added 20ml Tobi Tobi for local to vial Ronald Cardenas MD anesthetic field 12:57:12 Heparin Flush added 2 Tobi Tobi used for Bag to bags Ronald Cardenas MD procedure (1000units/500ml field NS) 12:57:25 0.9% NaCl I.V. 100 Tobi Buffie Per ml/hr Ronald Bermudez RN physician 12:57:32 Versed I.V. 1 mg Tobi Buffie for sedation Ronald Bermudez RN 12:57:38 Fentanyl I.V. 50 Tobi Buffie for sedation mcg Ronald Bermudez RN 13:00:49 Versed I.V. 1 mg Tobi Buffie for sedation Ronald Bermudez RN 13:00:53 Fentanyl I.V. 50 Tobi Buffie for sedation mcg Ronald Bermudez RN 13:05:29 Fentanyl I.V. 50 Tobi Aura for sedation mcg Ronald Bermudez RN 13:23:04 Plavix P.O. 75 mg Tobi Chavarria for Ronald Bermudez RN antiplatelet therapy Procedure Log Time Note 12:23:31 Informed consent obtained and on chart 12:24:02 Diagnostic Cath Status : Elective 12:25:05 Indication : Angina 12:25:21 Aura Bermudez RN sent for patient. Start room use. 12:25:22 Time tracking: Regular hours 12:: Plan of Care:Hemodynamics will remain stable., Cardiac rhythm will remain stable., Comfort level will be maintained., Respiratory function will remain adequate., Patient/ family verbilizes understanding of procedure., Procedure tolerated without complication., Recovers from procedure without complications.. 12:25:37 Admit Source: Other 12:25:39 Arrival Date: 07/03/2016 9:49:00 PM 12:25:52 Insurance Payor : Medicare 12:30:57 Oxygen 2 l/min NC was administered by Aura Bermudez RN; used for procedure; 12:35:10 Patient received from Med II to CCL 3 Alert and oriented. Tansferred to table in Supine position. 12:35:11 Warm blankets applied, and nura hugger turned on for patient comfort. 12:35:12 ECG and BP/O2 sat monitors applied to patient. 12:35:12 Correct patient and procedure confirmed by team. 12:42:41 Vital chart was started 12:42:42 Baseline sample Acquired. 12:42:48 Rhythm: sinus rhythm 12:42:49 Full Disclosure recording started 12:42:54 H&P Date Dictated: 07/03/2016 New H&P dictated by physician.. 12:42:55 Pre-op teaching completed and patient verbalized understanding. 12:42:55 Pre-procedure instructions explained to patient. 12:42:57 Family in waiting room. 12:43:00 Patient NPO since Midnight. 12:43:06 Is the patient allergic to Iodine/contrast media? No. 12:43:07 Was the patient premedicated? No 12:43:09 Is patient on blood thinner?Yes 12:43:13 Patient diabetic? Yes. 12:43:17 Previous problem with sedation/anesthesia? No ? 12:43:18 Snore? Yes 12:43:19 Sleep apnea? Yes 12:43:20 Deviated septum? No 12:43:21 Opens mouth fully? Yes 12:43:22 Sticks out tongue? Yes 12:43:29 Airway obstruction? Yes copd emphysema 12:43:32 Dentures? No ? 12:43:52 ACC The patient was administered the following blood thiners within the last 24 hours: ACCPlavix 12:44:02 Patient pain scale 0/10 ?. 12:44:15 IV patent on arrival in right forearm with 0.9% NaCl at [facility]. 12:44:21 Lab results completed and on chart. 12:44:25 Right groin area was prepped with chlora-prep and draped in sterile fashion 12:44:26 Sharps counted by scrub and verified by R.N. 12:44:26 Alarms reviewed by R. N. 12:48:34 If diabetic: On Metformin? Yes 12:48:55 If on Metformin: Last Dose? 06/30/2016 12:50:22 Lab Result : Hemoglobin 15.1 g/dl 12:50:22 Lab Result : Creatinine 0.9 mg/dl 12:50:22 Lab Result : BUN 11 mg/dl 12:53:08 Use device set Femoral Dx 12:53:09 Acist Syringe opened to sterile field. 12:53:10 Medline Cath Pack opened to sterile field. 12:53:10 Bag Decanter opened to sterile field. 12:53:11 St Nathan 260cm J .035 wire opened to sterile field. 12:53:11 Terumo 5Fr Middleton Sheath opened to sterile field. 12:53:14 Acist Manifold opened to sterile field. 12:53:14 Acist Hand Control opened to sterile field. 12:53:15 Diagnostic Infinity 5Fr Multipack catheter opened to sterile field. 12:53:16 Tegaderm 4 x 4 opened to sterile field. 12:55:11 Physician arrived 12:55:12 Final Timeout: patient, procedure, and site verified with staff and physician. All members of the team are in agreement. 12:55:12 --------ALL STOP TIME OUT------ 12:55:15 Left groin site verified by team. 12:55:21 Physical assessment completed. ASA score P 2 - A patient with mild systemic disease as per Tobi Cardenas MD. 12:55:30 Sedation plan: IV Moderate Sedation Versed, Fentanyl 12:57:04 Lidocaine 2% 20ml vial added to field was administered by Tobi Cardenas MD; for local anesthetic; 12:57:12 Heparin Flush Bag (1000units/500ml NS) 2 bags added to field was administered by Tobi Cardenas MD; used for procedure; 12:57:25 0.9% NaCl 100 ml/hr I.V. was administered by Aura Bermudez RN; Per physician; 12:57:32 Versed 1 mg I.V. was administered by Aura Bermudez RN; for sedation; 12:57:38 Fentanyl 50 mcg I.V. was administered by Aura Bermudez RN; for sedation; 13:00:49 Versed 1 mg I.V. was administered by Aura Bermudez RN; for sedation; 13:00:53 Fentanyl 50 mcg I.V. was administered by Aura Bermudez RN; for sedation; 13:03:02 Patient Height : 182.88 cm 13:03:05 Patient Weight : 77.11 kg 13:03:16 Procedure started. 13:03:24 Local anesthetic to left femerol artery with Lidocaine 2% by Tobi Cardenas MD.INITIAL ACCESS ONLY 13:03:36 Zero performed for pressure channel P1 13:04:37 A 6 Fr Short sheath was inserted into the Left Femoral artery 13:05:29 Fentanyl 50 mcg I.V. was administered by Aura Bermudez RN; for sedation; 13:05:47 A Cordis 5Fr JL 4.0 Catheter (MP) was advanced over the wire and used for Procedure. 13:06:28 LCA angiography performed. 13:07:52 Catheter exchanged over wire. 13:07:59 A Cordis 5Fr 3DRC Catheter (MP) was advanced over the wire and used for Procedure. 13:08:46 RCA angiography performed. 13:09:09 Catheter exchanged over wire. 13:10:05 A Cordis 5Fr Pigtail Catheter (MP) was advanced over the wire and used for Procedure. 13:10:30 LV hemodynamics recorded. 13:10:33 LV gram done using VELEZ 13:11:03 EF : 45 % 13:12:26 Catheter removed. 13:15:10 Cordis 6Fr Exoseal opened to sterile field. 13:15:47 Sheath removed intact; hemostasis achieved with Exoseal to the Left Femoral artery. 13:16:05 Procedure ended.(Physican Out) 13:16:22 Fluoroscopy time 01.70 minutes. 13:16:35 Fluoroscopy dose: 228.76 mGy 13:16:35 Flurop Dose total: 228.76 13:16:50 Contrast amount:Isovue 300 65ml. 13:16:52 Sharps counted by scrub and verified by R.N. 13:18:55 Insertion/operative site no bleeding no hematoma. 13:18:59 Post-op/insertion site Left Femoral artery dressed using a 4 x 4 and Tegaderm. 13:19:05 Post left femerol artery:stable 13:19:19 Post procedure: left dorsailis pedis pulse 1+ Palpable, but thready & weak; easily obliterated. 13:19:26 Post-procedure physical assessment completed. ASA score P 2 - A patient with mild systemic disease as per Tobi Cardenas MD. 13:19:31 Post procedure rhythm: sinus rhythm 13:19:35 Estimated blood loss: 10 ml 13:19:37 Post procedure instruction explained to patient.Patient verbalizes understanding. 13:19:38 Patient needs reinforcement of post procedure teaching. 13:19:44 Procedure and supply charges have been captured, reviewed, submitted and are correct. 13:19:47 Vital chart was stopped 13:19:48 See physician's report for complete and final results. 13:19:50 Report given to PCU. 13:19:54 Patient transfered to PCU with Bed. 13:19:57 Full Disclosure recording stopped 13:19:57 Procedure ended. 13:20:02 End room use (Document Last) 13:23:04 Plavix 75 mg P.O. was administered by Aura Bermudez RN; for antiplatelet therapy; Device Usage Item Name Manufacture Quantity Catalog Hospital Part Current Minimal Lo t# / Number Charge Number Stock Stock Serial# Code Acist Acist 1 [id number] [id number] 228013 794148 20 Syringe Medical Systems Inc Bag Microtek 1 2002S 561962 62361 845244 5 HyperQuest Inc. Medline Cardinal 1 [id number] 879521 70018 061526 5 VelociData Terumo 5Fr Terumo 1 [id number] 081822 854615 277342 [address] Nathan 1 369723 052748 851348 425934 30 260cm J .035 wire Acist Hand Acist 1 08695 689311 212527 503732 5 Control Medical Systems Inc Acist Acist 1 97987 875668 641773 235968 5 Manifold Medical Systems Inc Diagnostic Cardinal 1 [id number] 864534 66736 663004 30 Infinity Health 5Fr Multipack catheter Tegaderm 4 3M 1 1626W 251636 218437 310944 5 x 4 Cordis 5Fr Cardinal 1 039405 5 JL 4.0 Health Catheter (MP) Cordis 5Fr Cardinal 1 656649 5 3DRC Health Catheter (MP) Cordis 5Fr Cardinal 1 709549 5 Pigtail Health Catheter (MP) Cordis 6Fr Cardinal 1 EX600 071358 359707 678713 10 [employer] Signature Audit [place] Stage Time Signature Unsigned Intra-Procedure 07/03/2016 Rj Heart RT(R) 1:20:30 PM RT(R) (CV) (CV) 07/03/2016 1:22:39 PM Intra-Procedure 07/03/2016 Rj Heart 1:23:52 PM RT(R) (CV) Signatures Monitor : Rj Heart RT Signature : Date : Time : [id number] [place] [address]
[~2016-07-02 18:40] MED LIST changes: -NORVASC10 MG PO; +NORVASC5 MG PO
[2016-07-02 19:37] LABS: BASOPHILS 0.2 % (0-2); EOSINOPHILS 0.9 % (0-7); HEMATOCRIT 42.6 % (42.0-54.0); HEMOGLOBIN 15.1 g/dL (13.5-17.5); IMMATURE GRANULOCYTES 0.2 % (0-5); LYMPHOCYTES 9.8 % (15-50); MCH 30.8 pg (26.0-34.0); MCHC 35.4 g/dL (31.0-37.0); MCV 86.8 fL (80.0-100.0); MEAN PLATELET VOLUME 9.6 fL (7.4-10.4); MONOCYTES 6.6 % (2-11); NEUTROPHILS 82.3 % (40-80); PLATELET COUNT 185 10x3/uL (130-400); RBC 4.91 10x6/uL (4.20-6.10); WBC 8.7 10x3/uL (4.8-10.8)
[2016-07-02 19:51] LABS: ALBUMIN 3.3 g/dL (3.4-5.0); ALKALINE PHOSPHATASE 74 U/L (46-116); ALT (SGPT) 23 U/L (10-68); BILIRUBIN - TOTAL 0.55 mg/dL (0.2-1.3); CALC OSMOLALITY 278 mosm/kg (275-300); CALCIUM 9.1 mg/dL (8.5-10.1); CARBON DIOXIDE 27.5 mmol/L (21.0-32.0); CHLORIDE - SERUM 97 mmol/L (98-107); GLUCOSE 382 mg/dL (74-106); POTASSIUM - SERUM 4.1 mmol/L (3.5-5.1); PROTEIN - SERUM 6.6 g/dL (6.4-8.2); SODIUM 131 mmol/L (136-145); UREA NITROGEN 12 mg/dL (7-18); eGFR NON AFRICAN AMERICAN 83 mL/min (90-120)
[2016-07-02 19:57] LABS: APTT 29.2 SECONDS (22.8-39.4); INR 0.99 (0.85-1.17)
[2016-07-02 19:59] LABS: D-DIMER-QUANTITATIVE < 0.27 ug/mLFEU (0.20-0.54)
[2016-07-02 20:07] LABS: CHOL - HDL RATIO 4.1 ratio (2.3-4.9); CHOLESTEROL, TOTAL 200 mg/dL (0-200); CKMB 1.3 U/L (0.0-3.6); CREATINE KINASE 50 UL (21-232); HDL CHOLESTEROL 49 mg/dL (32-96); LDL CHOLESTEROL 95 mg/dL (0-100); LDL-HDL RATIO 1.9 ratio (1.5-3.5); TRIGLYCERIDE 283 mg/dL (30-200)
[2016-07-02 20:17] LABS: TROPONIN-I 0.116 ng/mL (0.000-0.060)
[2016-07-02 21:24] LABS: CALC OSMOLALITY 276 mosm/kg (275-300); CALCIUM 8.2 mg/dL (8.5-10.1); CARBON DIOXIDE 23.2 mmol/L (21.0-32.0); CHLORIDE - SERUM 99 mmol/L (98-107); CREATININE - SERUM 0.9 mg/dL (0.6-1.3); POTASSIUM - SERUM 3.5 mmol/L (3.5-5.1); SODIUM 132 mmol/L (136-145); UREA NITROGEN 11 mg/dL (7-18); eGFR NON AFRICAN AMERICAN > 90 mL/min (90-120)
[2016-07-02 21:25] LABS: GLUCOSE 332 mg/dL (74-106)
[2016-07-03] VITALS (7 sets, daily range): BP systolic 128–147; BP diastolic 82–95; Ht 182.9 cm; Wt 77.3 kg
[2016-07-03 06:03] LABS: INR 1.03 (0.85-1.17); PROTIME 13.3 SECONDS (11.6-15.0)
--- NOTE | 2016-07-03 06:10 | NUR ---
PT STATES WANTING TO BE DISCONNECTED FROM HEPARIN GTT FOR A SHOWER THIS AM. PT OFFERED A BED BATH D/T HE CAN NOT BE DISCONNECTED FROM HIS HEPARIN GTT.. PT REFUSES HIS BED BATH. STATES HE WILL DO A SHOWER OR NOTHING AT ALL.
[2016-07-03 07:51] LABS: CREATINE KINASE 37 UL (21-232); TROPONIN-I 0.242 ng/mL (0.000-0.060)
--- NOTE | 2016-07-03 12:33 | NUR ---
PRE-OPS GIVEN. TO AUTOMOTIVE TECHNICIAN BY BED.
--- NOTE | 2016-07-03 13:45 | NUR ---
BACK FROM NATIONAL COVERAGE SPECIALIST. VS WBL. RIGHT GROIN STABLE WITHOUT BLEEDING OR HEMATOMA NOTED. WILL MONITOR.
--- NOTE | 2016-07-03 13:45 | NUR ---
BACK FROM STUDENT SERVICES ADVISOR. VS WNL. LEFT GROIN STABLE WITHOUT BLEEDING OR HEMATOMA NOTED. WILL MONITOR.
--- NOTE | 2016-07-03 15:46 | NUR ---
BED REST UP. GROIN STABLE.
--- NOTE | 2016-07-03 20:15 | NUR ---
PT STATES NOT RECEIVING ANY OF HIS DIBETIC MEDICATIONS SINCE HIS ARRIVAL. GLUCOSE CHECKED AND RESULTED 477 AND RECHECKED AND RESULTED 520. HUMALOG LOW DOSE INSULIN SCALE ORDERED. PT GIVEN 12 UNITS HUMALOG SQ PER S/S. STAT GLUCOSE ORDERED VIA CPOE. AWAITING LAB TO DRAW.
[2016-07-04 04:00] VITALS: BP 136/92
[2016-07-04 08:00] VITALS: BP 130/74
--- NOTE | 2016-07-04 13:23 | NUR ---
IV AND TELEMETRY DCD. DC PLANS GIVEN. UNDERSTANDING VOICED.
== END 2016-07-04 13:24 | disposition home or self-care (01) ==
LOC: D.ER 18:40 → OBSVTIME 21:49 → D.M2 21:49
PROVIDERS: Emergency Medicine; Nurse Practitioner Acute Care; ADMIT Internal Medicine Cardiovascular Disease
DX: I25.110 Atherosclerotic heart disease of native coronary artery with unstable angina pectoris (principal); I10 Essential (primary) hypertension

== ENCOUNTER 2016-07-12 10:23 | Emergency (ER) | payer MEDICARE, MEDICAID ==
[2016-07-03 00:38] VITALS: BMI 23.1
[2016-07-12 11:18] LABS: BASOPHILS 0.4 % (0-2); EOSINOPHILS 2.5 % (0-7); HEMOGLOBIN 15.5 g/dL (13.5-17.5); IMMATURE GRANULOCYTES 0.2 % (0-5); LYMPHOCYTES 20.5 % (15-50); MCH 30.4 pg (26.0-34.0); MCHC 35.2 g/dL (31.0-37.0); MCV 86.3 fL (80.0-100.0); MEAN PLATELET VOLUME 9.4 fL (7.4-10.4); MONOCYTES 6.5 % (2-11); NEUTROPHILS 69.9 % (40-80); RDW 12.6 % (11.5-14.5); WBC 8.1 10x3/uL (4.8-10.8)
[2016-07-12 11:19] LABS: PLATELET COUNT 268 10x3/uL (130-400)
[2016-07-12 11:39] LABS: ALBUMIN 3.6 g/dL (3.4-5.0); ALKALINE PHOSPHATASE 88 U/L (46-116); ALT (SGPT) 38 U/L (10-68); BILIRUBIN - TOTAL 0.42 mg/dL (0.2-1.3); CALC OSMOLALITY 290 mosm/kg (275-300); CALCIUM 9.5 mg/dL (8.5-10.1); CARBON DIOXIDE 26.5 mmol/L (21.0-32.0); CHLORIDE - SERUM 94 mmol/L (98-107); CHOL - HDL RATIO 5.7 ratio (2.3-4.9); CHOLESTEROL, TOTAL 251 mg/dL (0-200); CKMB 1.6 U/L (0.0-3.6); CREATINE KINASE 65 UL (21-232); CREATININE - SERUM 1.1 mg/dL (0.6-1.3); HDL CHOLESTEROL 44 mg/dL (32-96); LDL CHOLESTEROL 141 mg/dL (0-100); LDL-HDL RATIO 3.2 ratio (1.5-3.5); POTASSIUM - SERUM 4.8 mmol/L (3.5-5.1); PROTEIN - SERUM 7.3 g/dL (6.4-8.2); SODIUM 130 mmol/L (136-145); TRIGLYCERIDE 330 mg/dL (30-200); TROPONIN-I 0.051 ng/mL (0.000-0.060); UREA NITROGEN 14 mg/dL (7-18); eGFR NON AFRICAN AMERICAN 74 mL/min (90-120)
[2016-07-12 11:41] LABS: GLUCOSE 620 mg/dL (74-106)
[2016-07-12 13:02] LABS: APPEARANCE CLEAR (CLEAR); COLOR STRAW (YELLOW); LEUKOCYTE ESTERASE NEGATIVE (NEGATIVE)
[2016-07-12 13:03] LABS: BILIRUBIN NEGATIVE (NEGATIVE); EPITHELIAL CELLS OCC /hpf (0-5); GLUCOSE 1000 mg/dL (NEGATIVE); KETONE SMALL mg/dL (NEGATIVE); NITRITE NEGATIVE (NEGATIVE); PROTEIN 1+ mg/dL (NEGATIVE); RED CELLS - URINE OCC /hpf (0-5); UROBILINOGEN NORMAL (NORMAL); WHITE CELLS - URINE NSEEN /hpf (0-5)
== END 2016-07-12 16:21 | disposition home or self-care (01) ==
LOC: D.ER 10:23
PROVIDERS: Emergency Medicine; Nurse Practitioner Family
DX: R07.9 Chest pain, unspecified (principal); E11.8 Type 2 diabetes mellitus with unspecified complications; Z79.4 Long term (current) use of insulin; J06.9 Acute upper respiratory infection, unspecified; I25.10 Atherosclerotic heart disease of native coronary artery without angina pectoris; E78.5 Hyperlipidemia, unspecified; I10 Essential (primary) hypertension; F17.200 Nicotine dependence, unspecified, uncomplicated

== ENCOUNTER 2016-07-15 07:45 | Emergency (ER) | payer MEDICARE, MEDICAID ==
[2016-07-03 00:38] VITALS: BMI 23.1
[~2016-07-15 07:45] MED LIST changes: +NORVASC10 MG PO; -NORVASC5 MG PO
[2016-07-15 08:26] LABS: APPEARANCE CLEAR (CLEAR); COLOR YELLOW (YELLOW); GLUCOSE 250 mg/dL (NEGATIVE); KETONE NEGATIVE (NEGATIVE); LEUKOCYTE ESTERASE NEGATIVE (NEGATIVE); NITRITE NEGATIVE (NEGATIVE); PROTEIN NEGATIVE (NEGATIVE); UROBILINOGEN NORMAL (NORMAL)
[2016-07-15 08:27] LABS: BILIRUBIN NEGATIVE (NEGATIVE)
[2016-07-15 08:28] LABS: BASOPHILS 0.7 % (0-2); EOSINOPHILS 2.3 % (0-7); HEMATOCRIT 41.8 % (42.0-54.0); HEMOGLOBIN 14.2 g/dL (13.5-17.5); IMMATURE GRANULOCYTES 0.3 % (0-5); LYMPHOCYTES 16.5 % (15-50); MCH 30.1 pg (26.0-34.0); MCV 88.6 fL (80.0-100.0); MEAN PLATELET VOLUME 9.5 fL (7.4-10.4); NEUTROPHILS 74.2 % (40-80); PLATELET COUNT 227 10x3/uL (130-400); RBC 4.72 10x6/uL (4.20-6.10); RDW 12.4 % (11.5-14.5); WBC 6.9 10x3/uL (4.8-10.8)
[2016-07-15 08:41] LABS: ALBUMIN 3.2 g/dL (3.4-5.0); ALKALINE PHOSPHATASE 92 U/L (46-116); ALT (SGPT) 37 U/L (10-68); BILIRUBIN - TOTAL 0.43 mg/dL (0.2-1.3); CALCIUM 8.9 mg/dL (8.5-10.1); CARBON DIOXIDE 23.2 mmol/L (21.0-32.0); CHLORIDE - SERUM 95 mmol/L (98-107); POTASSIUM - SERUM 4.9 mmol/L (3.5-5.1); PROTEIN - SERUM 6.6 g/dL (6.4-8.2); SODIUM 128 mmol/L (136-145); UREA NITROGEN 18 mg/dL (7-18); eGFR NON AFRICAN AMERICAN 83 mL/min (90-120)
[2016-07-15 08:44] LABS: CALC OSMOLALITY 293 mosm/kg (275-300)
[2016-07-15 08:47] LABS: GLUCOSE 733 mg/dL (74-106); KETONE - SERUM SMALL mg/dL (NEGATIVE)
== END 2016-07-15 14:50 | disposition home or self-care (01) ==
LOC: D.ER 07:45
PROVIDERS: Emergency Medicine
DX: E11.65 Type 2 diabetes mellitus with hyperglycemia (principal); E86.0 Dehydration; I25.10 Atherosclerotic heart disease of native coronary artery without angina pectoris; I10 Essential (primary) hypertension

== ENCOUNTER 2016-07-16 18:25 | Emergency (ER) | payer MEDICARE, MEDICAID ==
[2016-07-03 00:38] VITALS: BMI 23.1
[2016-07-16 19:50] LABS: BASOPHILS 0.3 % (0-2); EOSINOPHILS 2.3 % (0-7); HEMATOCRIT 40.7 % (42.0-54.0); IMMATURE GRANULOCYTES 0.3 % (0-5); LYMPHOCYTES 22.1 % (15-50); MCHC 34.4 g/dL (31.0-37.0); MCV 87.2 fL (80.0-100.0); MEAN PLATELET VOLUME 9.5 fL (7.4-10.4); MONOCYTES 7.7 % (2-11); NEUTROPHILS 67.3 % (40-80); PLATELET COUNT 215 10x3/uL (130-400); RBC 4.67 10x6/uL (4.20-6.10); RDW 12.3 % (11.5-14.5); WBC 6.1 10x3/uL (4.8-10.8)
[2016-07-16 20:00] LABS: KETONE - SERUM NEGATIVE (NEGATIVE)
[2016-07-16 20:20] LABS: ALBUMIN 3.2 g/dL (3.4-5.0); ALKALINE PHOSPHATASE 83 U/L (46-116); ALT (SGPT) 42 U/L (10-68); BILIRUBIN - TOTAL 0.38 mg/dL (0.2-1.3); CALCIUM 9.2 mg/dL (8.5-10.1); CHLORIDE - SERUM 93 mmol/L (98-107); CREATININE - SERUM 1.2 mg/dL (0.6-1.3); MAGNESIUM - SERUM 1.7 mg/dL (1.8-2.4); POTASSIUM - SERUM 4.5 mmol/L (3.5-5.1); PROTEIN - SERUM 6.6 g/dL (6.4-8.2); SODIUM 128 mmol/L (136-145); UREA NITROGEN 21 mg/dL (7-18); eGFR NON AFRICAN AMERICAN 67 mL/min (90-120)
[2016-07-16 20:21] LABS: CALC OSMOLALITY 292 mosm/kg (275-300)
[2016-07-16 20:25] LABS: GLUCOSE 690 mg/dL (74-106); TROPONIN-I 0.067 ng/mL (0.000-0.060)
== END 2016-07-16 21:10 | disposition home or self-care (01) ==
LOC: D.ER 18:25
PROVIDERS: Physician Assistant
DX: E11.65 Type 2 diabetes mellitus with hyperglycemia (principal); E07.9 Disorder of thyroid, unspecified; I25.10 Atherosclerotic heart disease of native coronary artery without angina pectoris; I10 Essential (primary) hypertension; E78.5 Hyperlipidemia, unspecified

== ENCOUNTER 2016-07-19 11:47 | Inpatient (IN) | payer MEDICARE, MEDICAID ==
[~2016-07-19] VITALS: Ht 182.9 cm; Wt 77.3 kg
[2016-07-19 12:16] LABS: BASOPHILS 0.3 % (0-2); EOSINOPHILS 1.5 % (0-7); HEMATOCRIT 42.3 % (42.0-54.0); IMMATURE GRANULOCYTES 0.3 % (0-5); LYMPHOCYTES 18.1 % (15-50); MCH 30.1 pg (26.0-34.0); MCHC 35.5 g/dL (31.0-37.0); MCV 84.8 fL (80.0-100.0); MEAN PLATELET VOLUME 9.8 fL (7.4-10.4); MONOCYTES 4.5 % (2-11); NEUTROPHILS 75.3 % (40-80); PLATELET COUNT 238 10x3/uL (130-400); RBC 4.99 10x6/uL (4.20-6.10); RDW 12.3 % (11.5-14.5); WBC 7.6 10x3/uL (4.8-10.8)
[2016-07-19 12:23] LABS: APTT 27.3 SECONDS (22.8-39.4); INR 0.97 (0.85-1.17); PROTIME 12.7 SECONDS (11.6-15.0)
[2016-07-19 12:45] LABS: ALBUMIN 3.2 g/dL (3.4-5.0); ALKALINE PHOSPHATASE 72 U/L (46-116); ALT (SGPT) 39 U/L (10-68); BILIRUBIN - TOTAL 0.78 mg/dL (0.2-1.3); CALC OSMOLALITY 279 mosm/kg (275-300); CALCIUM 8.8 mg/dL (8.5-10.1); CARBON DIOXIDE 21.7 mmol/L (21.0-32.0); CHLORIDE - SERUM 95 mmol/L (98-107); CKMB 2.1 U/L (0.0-3.6); CREATINE KINASE 88 UL (21-232); POTASSIUM - SERUM 3.9 mmol/L (3.5-5.1); PROTEIN - SERUM 6.5 g/dL (6.4-8.2); SODIUM 130 mmol/L (136-145); TROPONIN-I 0.038 ng/mL (0.000-0.060); UREA NITROGEN 13 mg/dL (7-18); eGFR NON AFRICAN AMERICAN 83 mL/min (90-120)
[2016-07-19 12:50] LABS: GLUCOSE 439 mg/dL (74-106)
--- NOTE | 2016-07-19 15:17 | NUR ---
PATIENT RECEIVED TO FLOOR FROM ER VIA WHEELCHAIR. PATIENT TRANSFERRED SELF TO BED. POSITIONED SELF FOR COMFORT. ORIENTED TO ROOM. SIDE RAILS UP X1. BED IN LOW POSITION. CALL LIGHT IN REACH.
--- NOTE | 2016-07-19 15:20 | NUR ---
ACCU CHECK 339. INSULIN PER SLIDING SCALE.
[2016-07-19 15:27] VITALS: BP 135/79; Ht 182.9 cm; Wt 77.3 kg
[2016-07-19 15:48] VITALS: BP 135/79
[2016-07-19] MEDS ORDERED: BETAPACE 80 MG80 MG PO (15:53)
[2016-07-19] MEDS ORDERED: ZANAFLEX4 MG PO (15:54)
[2016-07-19] MEDS ORDERED: CYCLOBENZAPRINE10 MG PO (15:55)
[2016-07-19] MEDS ORDERED: LANTUS INSULIN10 ML SC (15:56)
[2016-07-19] MEDS ORDERED: NOVOLOG FLEXPEN INJ SC (15:58)
--- NOTE | 2016-07-19 16:00 | NUR ---
PATIENT PLACED ON TELEMETRY. LOCAL HAZMAT DRIVER REPORTS 82 NSR.
--- NOTE | 2016-07-19 17:25 | NUR ---
ALERT IN BED EATING DINNER. TOLERATING WELL. DENIES NEEDS. SIDE RAILS UP X1. BED IN LOW POSITION. CALL LIGHT IN REACH.
--- NOTE | 2016-07-19 19:54 | NUR ---
PT SITTING UP IN BED WATCHING TV, ASSESSMENT COMPLETED, NO DISTRESS NOTED, DENIES PAIN OR NEEDS AT THIS TIME, SR UP X1, CL IN REACH, WILL MONITOR
[2016-07-19 20:00] VITALS: BP 139/94
--- NOTE | 2016-07-19 21:34 | NUR ---
DENIES NEEDS, NO DISTRESS NOTED, FALL PRECAUTIONS IN PLACE, DIABETIC SNACK PROVIDED, CL IN REACH
--- NOTE | 2016-07-19 23:17 | NUR ---
RESTING WITH EYES CLOSED, RESP WITH EASE, NO DISTRESS NOTED, SR UP, CL IN REACH
[2016-07-20] VITALS: BP 119/66
--- NOTE | 2016-07-20 02:24 | NUR ---
INSULIN GIVEN PER SLIDING SCALE FOR BS OF 332, ADY WELL, DENIES NEEDS, FALL PRECAUTIONS IN PLACE, CL IN REACH
[2016-07-20 04:00] VITALS: BP 122/80
[2016-07-20 05:28] LABS: BASOPHILS 0.3 % (0-2); EOSINOPHILS 3.6 % (0-7); HEMATOCRIT 41.6 % (42.0-54.0); HEMOGLOBIN 14.4 g/dL (13.5-17.5); IMMATURE GRANULOCYTES 0.2 % (0-5); LYMPHOCYTES 31.7 % (15-50); MCH 29.8 pg (26.0-34.0); MCHC 34.6 g/dL (31.0-37.0); MCV 86.1 fL (80.0-100.0); MEAN PLATELET VOLUME 9.8 fL (7.4-10.4); MONOCYTES 7.1 % (2-11); NEUTROPHILS 57.1 % (40-80); PLATELET COUNT 216 10x3/uL (130-400); RBC 4.83 10x6/uL (4.20-6.10); RDW 12.5 % (11.5-14.5); WBC 6.6 10x3/uL (4.8-10.8)
[2016-07-20 05:47] LABS: CALC OSMOLALITY 282 mosm/kg (275-300); CALCIUM 8.8 mg/dL (8.5-10.1); CARBON DIOXIDE 25.9 mmol/L (21.0-32.0); CHLORIDE - SERUM 103 mmol/L (98-107); CREATININE - SERUM 0.9 mg/dL (0.6-1.3); POTASSIUM - SERUM 3.8 mmol/L (3.5-5.1); SODIUM 136 mmol/L (136-145); UREA NITROGEN 15 mg/dL (7-18); eGFR NON AFRICAN AMERICAN > 90 mL/min (90-120)
[2016-07-20 05:54] LABS: GLUCOSE 286 mg/dL (74-106)
--- NOTE | 2016-07-20 07:30 | NUR ---
AWAKE AND ALERT. ORIENTED X3. DENIES NEEDS.
[2016-07-20 07:50] VITALS: BP 138/92
--- NOTE | 2016-07-20 08:45 | NUR ---
ATE ALL OF BREAKFAST. UP TO SHOWER WITH SET UP ASSIST. FSBS 328. GIVEN 8 UNITS REGULAR SUBQ PER SS.
--- NOTE | 2016-07-20 10:45 | NUR ---
BACK IN ROOM AFTER AMBULATING OUTSIDE FOR A WHILE.
[2016-07-20 11:30] VITALS: BP 129/92
--- NOTE | 2016-07-20 14:23 | NUR ---
* Is the patient Alert and Oriented? Yes 0 * How many steps to enter\exit or inside your home? 0 0 * PCP JUAN JOSE 0 * [facility] 0 * Preadmission Environment Home Alone 0 * ADLs Independent 0 * Equipment None 0 * List name and contact numbers for known caregivers / representatives who currently or will assist patient after discharge: NONE 0 * Community resources currently utilized None 0 * Additional services required to return to the preadmission environment? Yes 0 * Can the patient safely return to the preadmission environment? Yes 0 * Has this patient been hospitalized within the prior 30 days at any hospital? No 0 Grand Total: 0 Patient Name: ORIANA WILSON Admission Status: ER Accout number: [id number] Admission Date: 07-19-2016 : 1960 Admission Diagnosis:TYPE 2 DIABETES MELLITUS WITH HYPERGLYCEMIA Attending: FATMATA Current LOS: 1 Anticipated DC Date: Planned Disposition: Home Primary Insurance: [employer] ADV Discharge Planning Comments: CM met with patient to assess discharge planning/needs. Patient states that his home is his car. He plans to return to his car when he is discharged. He denies having any family or friends. He was very short with me during my assessment. Patient stated he was done answering questions. CM will continue to follow and assist as needed. PCP: Juan Jose [facility]acy: [facility] Automatic Spreader Operator: Sofya Miles
--- NOTE | 2016-07-20 15:16 | NUR ---
PATIENT RETURNED FROM WALKING. FSBS 285. GIVEN 6 UNITS REGULAR INSULIN SUBQ PER SS. OFF UNIT VIA WC FOR MRI.
--- NOTE | 2016-07-20 17:29 | NUR ---
PT LYING IN BED WATCHING TV. STATED RT SIDE IS STILL TINGLING AND NUMB. PT ALSO STATED HAS A LOT OF GAS UNABLE TO HAVE A REGULAR BM. OFTEN FEELS THE URGE BUT USUALLY JUST HAS GAS THAT PASSES. PT LAST BM WAS 07/20/16 IN THE AM. LITTLE AMOUNT AND NOT NORMAL IT WAS BEFORE STROKE 1 YEAR AGO. ASSESSED PT ABD SOUNDS. ACTIVE X4 QUADRANTS. NO DISTENTION NOTED
--- NOTE | 2016-07-20 19:15 | NUR ---
PT AMBULATING IN ROOM, ASSESSMENT COMPLETED, NO DISTRESS NOTED, DENIES NEEDS AT THIS TIME, CL IN REACH, WILL MONITOR
[2016-07-20 20:00] VITALS: BP 125/80
--- NOTE | 2016-07-20 21:08 | NUR ---
MEDS GIVEN PER MAR, 8 UNITS INSULIN PER SLIDING SCALE FOR BS OF 337, ADY WELL, DENIES NEEDS, SR'S UP, CL IN REACH
--- NOTE | 2016-07-20 23:41 | NUR ---
RESTING WITH EYES CLOSED, RESP WITH EASE, NO DISTRESS NOTED, SR'S UP, CL IN REACH
--- NOTE | 2016-07-21 01:24 | NUR ---
RESTING WITH EYES CLOSED, NO DISTRESS NOTED, FALL PRECAUTION IN PLACE, CL IN REACH
[2016-07-21 04:00] VITALS: BP 123/76
--- NOTE | 2016-07-21 07:30 | NUR ---
AWAKE AND ALERT.ORIENTED X3. C/O PAIN TO RIGHT ARM AND SHOULDER AROUND BACK OF NECK AND HEAD. WILL GIVE PRN FOR THIS. LUNGS ARE CLEAR BILATERALLY, NO COUGH NOTED. SKIN IS INTACT WITHOUT REDNESS. SL TO RIGHT FOREARM PATENT WITHOUT REDNESS AT INSERTION SITE. DENIES NEEDS.
--- NOTE | 2016-07-21 08:48 | NUR ---
REQUESTED AND GIVNE ONE HYDROCODONE PO FOR C/O PAIN LEVEL 8. WILL MONITOR. ATE MOST OF BREAKFAST TRAY.
--- NOTE | 2016-07-21 09:15 | NUR ---
FSBS 402. PATIENT REPORTED EATING SYRUP FOR BREAKFAST. GIVEN 12 UNITS REGULAR SUBQ PER SS. WILL MONITOR.
[2016-07-21 09:17] VITALS: BP 123/81
[2016-07-21 11:54] VITALS: BP 110/76
--- NOTE | 2016-07-21 13:00 | NUR ---
PATIENT DISCHARGED TO HOME AMBULATORY PER SELF. DISCHARGE INSTRUCTIONS GIVEN BOTH VERBALLY AND WRITTEN. ALL QUESTIONS ANSWERED. PATIENT VERBALIZED UNDERSTANDING OF SAME. NO NEW PRESCRIPTIONS NEEDED.
--- NOTE | 2016-07-21 14:22 | NUR ---
patient discharged today refuses HH and CM needs
== END 2016-07-21 13:25 | disposition home or self-care (01) | DRG 69 ==
LOC: D.ER 11:47 → D.MS 14:38 → OBSVTIME 14:38 → D.MS 14:38
PROVIDERS: Family Medicine; ADMIT Family Medicine
DX: G45.9 Transient cerebral ischemic attack, unspecified (principal); E11.65 Type 2 diabetes mellitus with hyperglycemia; Z79.4 Long term (current) use of insulin; F17.200 Nicotine dependence, unspecified, uncomplicated; I25.10 Atherosclerotic heart disease of native coronary artery without angina pectoris; I25.2 Old myocardial infarction; R07.89 Other chest pain; Z86.73 Personal history of transient ischemic attack (TIA), and cerebral infarction without residual deficits; Z91.14 Patient's other noncompliance with medication regimen

== ENCOUNTER 2016-07-26 14:53 | Emergency (ER) | payer MEDICARE, MEDICAID ==
[2016-07-19 15:27] VITALS: BMI 23.1
[~2016-07-26 14:53] MED LIST changes: +CYCLOBENZAPRINE10 MG PO; +LANTUS INSULIN10 ML SC; +NOVOLOG FLEXPEN INJ SC; +ZANAFLEX4 MG PO
[2016-07-26 15:41] LABS: BASOPHILS 0.5 % (0-2); EOSINOPHILS 1.9 % (0-7); HEMATOCRIT 42.4 % (42.0-54.0); HEMOGLOBIN 14.7 g/dL (13.5-17.5); IMMATURE GRANULOCYTES 0.2 % (0-5); MCH 30.1 pg (26.0-34.0); MCHC 34.7 g/dL (31.0-37.0); MCV 86.9 fL (80.0-100.0); MEAN PLATELET VOLUME 9.7 fL (7.4-10.4); MONOCYTES 6.4 % (2-11); PLATELET COUNT 200 10x3/uL (130-400); RBC 4.88 10x6/uL (4.20-6.10); RDW 12.2 % (11.5-14.5); WBC 6.4 10x3/uL (4.8-10.8)
[2016-07-26 16:13] LABS: KETONE - SERUM NEGATIVE (NEGATIVE)
[2016-07-26 16:34] LABS: ALBUMIN 3.3 g/dL (3.4-5.0); ALKALINE PHOSPHATASE 81 U/L (46-116); ALT (SGPT) 36 U/L (10-68); BILIRUBIN - TOTAL 0.33 mg/dL (0.2-1.3); CALCIUM 9.2 mg/dL (8.5-10.1); CARBON DIOXIDE 24.1 mmol/L (21.0-32.0); CHLORIDE - SERUM 95 mmol/L (98-107); CHOL - HDL RATIO 5.6 ratio (2.3-4.9); CHOLESTEROL, TOTAL 245 mg/dL (0-200); CREATINE KINASE 79 UL (21-232); CREATININE - SERUM 1.2 mg/dL (0.6-1.3); HDL CHOLESTEROL 44 mg/dL (32-96); LDL CHOLESTEROL 132 mg/dL (0-100); POTASSIUM - SERUM 4.1 mmol/L (3.5-5.1); PROTEIN - SERUM 6.6 g/dL (6.4-8.2); SODIUM 131 mmol/L (136-145); TRIGLYCERIDE 345 mg/dL (30-200); UREA NITROGEN 18 mg/dL (7-18); eGFR NON AFRICAN AMERICAN 67 mL/min (90-120)
[2016-07-26 16:42] LABS: CALC OSMOLALITY 298 mosm/kg (275-300)
[2016-07-26 16:44] LABS: GLUCOSE 718 mg/dL (74-106)
[2016-07-26 18:31] LABS: APPEARANCE CLEAR (CLEAR); BILIRUBIN NEGATIVE (NEGATIVE); COLOR STRAW (YELLOW); GLUCOSE 1000 mg/dL (NEGATIVE); KETONE NEGATIVE (NEGATIVE); LEUKOCYTE ESTERASE NEGATIVE (NEGATIVE); NITRITE NEGATIVE (NEGATIVE); PROTEIN NEGATIVE (NEGATIVE); SPECIFIC GRAVITY 1.005 (1.005-1.020); UROBILINOGEN NORMAL (NORMAL)
== END 2016-07-26 18:36 | disposition home or self-care (01) ==
LOC: D.ER 14:53
PROVIDERS: Emergency Medicine; Physician Assistant Medical
DX: R07.9 Chest pain, unspecified (principal); E11.65 Type 2 diabetes mellitus with hyperglycemia; Z79.4 Long term (current) use of insulin; Z91.14 Patient's other noncompliance with medication regimen; F17.200 Nicotine dependence, unspecified, uncomplicated; I10 Essential (primary) hypertension

== ENCOUNTER 2016-08-01 07:43 | Inpatient (IN) | payer MEDICARE, MEDICAID ==
[~2016-08-01] VITALS: Ht 182.9 cm; Wt 75.1 kg
[2016-08-01] VITALS (8 sets, daily range): BP systolic 132–166; BP diastolic 81–106; BMI 21.8
[2016-08-01 08:10] LABS: BASOPHILS 0.6 % (0-2); EOSINOPHILS 1.7 % (0-7); HEMATOCRIT 42.6 % (42.0-54.0); HEMOGLOBIN 15.1 g/dL (13.5-17.5); IMMATURE GRANULOCYTES 0.2 % (0-5); LYMPHOCYTES 19.5 % (15-50); MCH 30.2 pg (26.0-34.0); MCHC 35.4 g/dL (31.0-37.0); MCV 85.2 fL (80.0-100.0); MEAN PLATELET VOLUME 9.5 fL (7.4-10.4); MONOCYTES 6.9 % (2-11); NEUTROPHILS 71.1 % (40-80); PLATELET COUNT 173 10x3/uL (130-400); RDW 12.1 % (11.5-14.5); WBC 4.8 10x3/uL (4.8-10.8)
[2016-08-01 08:19] LABS: APTT 27.8 SECONDS (22.8-39.4); INR 0.96 (0.85-1.17); PROTIME 12.7 SECONDS (11.6-15.0)
[2016-08-01 08:46] LABS: APPEARANCE CLEAR (CLEAR); BILIRUBIN NEGATIVE (NEGATIVE); COLOR STRAW (YELLOW); GLUCOSE 1000 mg/dL (NEGATIVE); KETONE MODERATE mg/dL (NEGATIVE); LEUKOCYTE ESTERASE NEGATIVE (NEGATIVE); NITRITE NEGATIVE (NEGATIVE); PROTEIN NEGATIVE (NEGATIVE); UROBILINOGEN NORMAL (NORMAL)
[2016-08-01 08:50] LABS: ALBUMIN 3.4 g/dL (3.4-5.0); ALKALINE PHOSPHATASE 79 U/L (46-116); ALT (SGPT) 32 U/L (10-68); BILIRUBIN - TOTAL 0.78 mg/dL (0.2-1.3); CALCIUM 8.7 mg/dL (8.5-10.1); CARBON DIOXIDE 23.2 mmol/L (21.0-32.0); CHLORIDE - SERUM 94 mmol/L (98-107); CHOL - HDL RATIO 5.2 ratio (2.3-4.9); CHOLESTEROL, TOTAL 250 mg/dL (0-200); CKMB 2.1 U/L (0.0-3.6); CREATINE KINASE 97 UL (21-232); CREATININE - SERUM 0.9 mg/dL (0.6-1.3); HDL CHOLESTEROL 48 mg/dL (32-96); LDL CHOLESTEROL 142 mg/dL (0-100); POTASSIUM - SERUM 3.8 mmol/L (3.5-5.1); PRO BNP 1008 pg/mL (0-125); PROTEIN - SERUM 6.6 g/dL (6.4-8.2); SODIUM 131 mmol/L (136-145); TRIGLYCERIDE 301 mg/dL (30-200); UREA NITROGEN 14 mg/dL (7-18); eGFR NON AFRICAN AMERICAN > 90 mL/min (90-120)
[2016-08-01 08:51] LABS: CALC OSMOLALITY 291 mosm/kg (275-300); GLUCOSE 607 mg/dL (74-106)
[2016-08-01 08:54] LABS: UDS - AMPHET NEGATIVE QUAL (NEGATIVE); UDS - BARB NEGATIVE QUAL (NEGATIVE); UDS - BENZO NEGATIVE QUAL (NEGATIVE); UDS - COCAINE NEGATIVE QUAL (NEGATIVE); UDS - METH NEGATIVE QUAL (NEGATIVE); UDS - OPIATE NEGATIVE QUAL (NEGATIVE); UDS - PCP NEGATIVE QUAL (NEGATIVE); UDS - THC NEGATIVE QUAL (NEGATIVE)
--- NOTE | 2016-08-01 12:17 | NUR ---
PATIENT HAS BEEN PLACED IN SUCH GREAT PAIN FROM BP CUFF THAT HE WILL NOT ALLOW THE BP CUFF TO BE PLACED.
--- NOTE | 2016-08-01 14:01 | NUR ---
PT STILL NO ALLOWING STAFF TO TAKE BP DUE BP CUFF BEING PAINFUL. IN BED RESTING WITH EYES CLOSED WITH 0 S/SX OF DISTRESS/DISCOMFORT NOTED. OCCOSIONALLY WAKES TO VOID VIA STANDING UP WITH A NORMAL STEADY STANCE AND USES URINAL.
--- NOTE | 2016-08-01 15:50 | NUR ---
PT HIT CALL LIGHT AND WAS HOLDING IV FLUID TUBING. "IT JUST FELL OUT." PUMP WAS SET TO KVO AND IV HAD BLOOD IN IT. PT HAS BEEN BEEN TAKING PO FLUIDS AND IS NOT ON ANY IV MEDICATION. IV DC. NO S/SX OF INFILTRATION OR INFECTION. DENIES PAIN.
--- NOTE | 2016-08-01 19:25 | NUR ---
SHIFT ASSESSMENT COMPLETED. SEE ASSESSMENT. SITTING UP IN BED. PLEASANT. ALLOWING TO TAKE A SET OF VITAL SIGNS BUT REFUSES TO KEEP B/P CUFF, O2 SENSOR ON. EKG LEAD REMAIN ON. NSR IN THE 70-80'S NOTED. WILL MONITOR.
--- NOTE | 2016-08-01 20:50 | NUR ---
2100 MEDS GIVEN. INSULIN GIVEN ORDERED AFTER FSBS CHECKED. WILL MONITOR.
--- NOTE | 2016-08-01 23:30 | NUR ---
REASSESSMENT COMPLETED. SEE ASSESSMENT FLOWSHEET. NO NEW ACUTE CHANGES NOTED. NEEDING TO URINATE. NSR ON THE MONITOR. O2 SAT 99% ON ROOM AIR SPOT CHECKED. WILL NOT WEAR B/P CUFF. WILL WEAR EKG LEADS. DENIES NEEDS AT PRESENT. WILL MONITOR.
--- NOTE | 2016-08-01 23:43 | NUR ---
C/O pain to his back a 06/17. Reports taking hydrocodone at home from chronic back pain. Dr. Balderas paged.
--- NOTE | 2016-08-02 | NUR ---
DR. MENDOZA RETURNED PAGE. DID NOT REORDER HOME MED OF HYDROCODONE. TYLENOL ONLY ORDERED. IN ATTEMPT TO GIVE TYLENOL, REFUSED DUE TO LIVER ISSUES. WILL MONITOR.
--- NOTE | 2016-08-02 01:00 | NUR ---
WANTING US TO CALL DOCTOR HE SEES THAT IS NOT ON HIS CASE. INFORMED WE CAN ONLY CALL DOCTORS ON HIS CASE IN THIS HOSPITAL. INFORMED HE COULD CALL THEM FROM HIS PHONE IF NEEDED. PERSONAL CELL PHONE IN HAND. PUT ON HIS CLOTHES AND SHOES. WILL MONITOR.
--- NOTE | 2016-08-02 02:45 | NUR ---
EYES CLOSED. LAYING IN CLOTHES. NO ACUTE DISTRESS NOTED. WILL MONITOR.
--- NOTE | 2016-08-02 04:40 | NUR ---
BRITTANY MEDINA AT BEDSIDE AT BEDSIDE. REASSESSMENT COMPLETED. SEE ASSESSMENT FLOWSHEET.
[2016-08-02 04:44] VITALS: BP 147/97
[2016-08-02 05:04] LABS: BASOPHILS 0.3 % (0-2); EOSINOPHILS 2.1 % (0-7); HEMATOCRIT 41.8 % (42.0-54.0); HEMOGLOBIN 14.8 g/dL (13.5-17.5); IMMATURE GRANULOCYTES 0.3 % (0-5); LYMPHOCYTES 22.6 % (15-50); MCHC 35.4 g/dL (31.0-37.0); MCV 84.8 fL (80.0-100.0); MEAN PLATELET VOLUME 9.8 fL (7.4-10.4); MONOCYTES 8.2 % (2-11); NEUTROPHILS 66.5 % (40-80); PLATELET COUNT 154 10x3/uL (130-400); RBC 4.93 10x6/uL (4.20-6.10); RDW 12.2 % (11.5-14.5)
[2016-08-02 05:36] LABS: CALCIUM 8.4 mg/dL (8.5-10.1); CARBON DIOXIDE 26.3 mmol/L (21.0-32.0); CHLORIDE - SERUM 101 mmol/L (98-107); CKMB 1.4 U/L (0.0-3.6); CREATININE - SERUM 0.8 mg/dL (0.6-1.3); MAGNESIUM - SERUM 1.4 mg/dL (1.8-2.4); PHOSPHOROUS 3.3 mg/dL (2.5-4.9); POTASSIUM - SERUM 3.7 mmol/L (3.5-5.1); SODIUM 135 mmol/L (136-145); UREA NITROGEN 11 mg/dL (7-18); eGFR NON AFRICAN AMERICAN > 90 mL/min (90-120)
[2016-08-02 05:37] LABS: CALC OSMOLALITY 278 mosm/kg (275-300); GLUCOSE 275 mg/dL (74-106); TROPONIN-I 0.073 ng/mL (0.000-0.060)
--- NOTE | 2016-08-02 06:05 | NUR ---
AWAKE. WATCHING TV WITH CLOTHES AND SHOES ON. DENIES TO TAKE INSULIN BEFORE BREAKFAST. STATES THE 275 IS TOO LOW TO TAKE INSULIN. WILL MONITOR.
--- NOTE | 2016-08-02 07:30 | NUR ---
PT LYING IN BED WATCHING TV. ABLE TO VOICE NEEDS AND HAS NO NEEDS AT THIS TIME. DRESSED SELF IN PERSONAL CLOTHES AND USES URNIAL AT BED SIDE STANDING UP WITH A NORMAL STEADY STANCE. "IM JUST WAITING ON THE DOCTOR". CALL LIGHT AT BED SIDE WITHIN REACH. WILL CONT POC.
--- NOTE | 2016-08-02 09:35 | NUR ---
ORAL TEMP 101.3. BOX FAX TURNED ON FACING PT. WILL RECHECK.
--- NOTE | 2016-08-02 10:49 | NUR ---
ORAL TEMP RECHECKED 100.3. BOX FAN STILL ON FACING PT. WILL RECHECK AND MONITOR.
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
--- NOTE | 2016-08-02 13:25 | NUR ---
ROUNDED. OK TO TRANSFER TO EITHER MED2 OR MED SURGE.
--- NOTE | 2016-08-02 14:41 | NUR ---
STILL WAITING FOR DISCHARGE FROM ICU. PT REQUESTED A CUP OF COFFEE. ALLOWED PT TO WALK AND HELP HIMSELF TO CUP OF COFFEE AT NURSING STATION. PT WALKED AROUND UNIT WITH A NORMAL STEADY GAIT. 0 S/SX OF DISTRESS/DISCOMFORT NOTED. BREATHING NORMAL AND UNLABORED.
--- NOTE | 2016-08-02 18:41 | NUR ---
Awaiting psych consult regarding compliance issue, ?? mental health issue, capacity issue. Patient w/ frequent ER visits and admits. Very poor compliance.
[2016-08-02 19:00] VITALS: BP 131/82
--- NOTE | 2016-08-02 19:10 | NUR ---
Received patient sitting up in bed with eyes open watching TV, Assessment completed per flowsheet. Patient AO x4, calm and cooperative. Eyes PERRLA @ 4mm with brisk response, sclera is white. S1/S2 noted rhythmic and regular, no telemetry orders for patient. Breathing is even and unlabored on room air, lung sounds clear all pickens. Abdomen is flat and soft, non-tender with bowel sounds active x4. Patient uses urinal/bedside commode without assistance, clear yellow urine noted. Patient has no IV access. Patient denies pain or other needs at this time, all VSS and will continue to monitor.
--- NOTE | 2016-08-02 20:00 | NUR ---
Patient requests [place], BS 336. Explained situation to patient, states his "sugar always runs high" and "doesn't treat himself at home". [place] provided and will recheck sugar in 30min.
--- NOTE | 2016-08-02 20:30 | NUR ---
Sugar rechecked prior to Insulin administration, BS 478. Rechecked, BS 384. Will treat per sliding scale.
[2016-08-02 23:00] VITALS: BP 124/71
--- NOTE | 2016-08-02 23:10 | NUR ---
Reassessment completed per flowsheet, patient resting in bed with eyes closed. S1/S2 noted rhythmic and regular. Breathing is even and unlabored on room air, O2 sat 96%. Patient AO x4, calm and cooperative. No further needs at this time, all VSS and will continue to monitor.
--- NOTE | 2016-08-03 01:00 | NUR ---
Patient resting in bed with eyes closed, denies pain or other needs at this time. All VSS and will continue to monitor.
--- NOTE | 2016-08-03 03:00 | NUR ---
Patient refused to allow 0300 vitals, stated BP cuff "hurts too much". Patient calm but unwilling to allow vitals to be taken, no further needs at this time.
--- NOTE | 2016-08-03 03:10 | NUR ---
Reassessment completed per flowsheet, patient resting in bed with eyes closed. S1/S2 noted rhythmic and regular. Breathing is even and unlabored on room air, O2 sat 95%. Patient AO x4, calm and cooperative but wants "to be left alone and sleep". Denies pain or other needs at this time, all VSS and will continue to monitor.
--- NOTE | 2016-08-03 05:10 | NUR ---
Patient resting in bed with eyes closed, denies pain or other needs at this time. All VSS and will continue to monitor.
[2016-08-03 07:00] VITALS: BP 140/76
--- NOTE | 2016-08-03 07:00 | NUR ---
ASSESSMENT COMPLETE PER FLOWSHEET. VOICES NO CO AT TIME. UP AMBULATING IN NURSING STATION.
--- NOTE | 2016-08-03 08:00 | NUR ---
DR MA HERE OK TO GO HOME. RX GIVEN AND CASE MANAGEMENT CONSULTED TO HELP GIVE PT HELP.
[2016-08-03] MEDS ORDERED: LANTUS INSULIN10 ML SC (08:31)
[2016-08-03] MEDS ORDERED: HUMALOG 30100 UNITS/ SC (08:32)
--- NOTE | 2016-08-03 08:45 | NUR ---
PT DECLINES HELP READY TO GO. DISCHARGE GIVEN AND SIGNED. LEFT VIA PRIVATE AUTO.
[2016-08-03 09:58] VITALS: Ht 182.9 cm; Wt 75.1 kg
--- NOTE | 2016-08-03 10:36 | NUR ---
08/03/2016 10:25 DCP: Discharge Planning DC order rec'd. Nursing has notified CM that patient may need assistance with obtaining insulin. Patient uses [facility] on [address]. Call placed to [employer] - patient last picked up his insulin in May - he has multiple refills. His copay for the insulin is $3.70. Patient refused to stay long enough for CM to meet with patient. Attempted to call patient @ [phone] - Voice message left for him to return call.
--- NOTE | 2016-08-04 08:06 | DS ---
PATIENT:ORIANA WILSON JR :62 MEDICAL RECORD: [id number] DISCHARGE SUMMARY ADMISSION DATE: 08/01/16 DISCHARGE DATE: 08/03/16 DATE OF ADMISSION: 08/01/2016. DATE OF DISCHARGE: 08/03/2016. ADMISSION DIAGNOSES: Uncontrolled insulin-dependent diabetes, noncompliance; chest pain. DISCHARGE DIAGNOSES: Uncontrolled insulin-dependent diabetes, noncompliance; chest pain. CONSULTS: Cardiology. The patient had a cardiac catheterization less than 2 weeks ago, it was clear. Does have cardiac history. Cleared for discharge by cardiology. HOSPITAL COURSE: The patient was admitted to the ICU with glucose levels over 500 and ketones in his urine. He was not in DKA. He was alert and started back on his insulin regimen with titration up on his Lantus to 35 units q.h.s. and sliding scale. Glucose levels have normalized. Counseled on the importance of compliance with his medications. Consulted case management to assist with medications and discharge planning. The patient is dressed and ready to go, anxious to leave. Discharged to home in significantly improved condition. PHYSICAL EXAMINATION: VITAL SIGNS ON DISCHARGE: Temperature 98.2, blood pressure is 124/71, heart rate 70, respirations 12, O2 sat 96% room air. GENERAL: Alert, oriented and ambulating independently. No acute distress. HEART: Regular rate and rhythm. LUNGS: Clear. ABDOMEN: Soft, nontender. Bowel sounds in all 4 quadrants. EXTREMITIES: Present times 4, no edema. NEUROLOGIC: Intact. SKIN: Warm and dry. No rash. DISCHARGE MEDICATIONS: As per med rec. DISCHARGE INSTRUCTIONS: The patient instructed to follow up with his primary care physician, Dr. Ingram this week. Follow up with cardiology as scheduled. Counseled on the importance of compliance. Please see chart for further details. Agree with assessments from consulting physician. TRANSINT:[id number] Voice Confirmation ID: [id number] DOCUMENT ID: [id number] LILIANA MA DO at 0806 CC: [id number] DICTATION DATE: 08/03/16 0848 SHAGGER: 08/04/16 0204 DIS IN 08/03/16 [facility] [address] [place] [address]
== END 2016-08-03 08:45 | disposition home or self-care (01) | DRG 639 ==
LOC: D.ER 07:43 → D.ICU 10:01
PROVIDERS: Emergency Medicine; ADMIT Family Medicine
DX: E11.65 Type 2 diabetes mellitus with hyperglycemia (principal); Z79.4 Long term (current) use of insulin; Z91.14 Patient's other noncompliance with medication regimen; J44.9 Chronic obstructive pulmonary disease, unspecified; I25.10 Atherosclerotic heart disease of native coronary artery without angina pectoris; I10 Essential (primary) hypertension; F41.9 Anxiety disorder, unspecified; F32.9 Major depressive disorder, single episode, unspecified; I25.5 Ischemic cardiomyopathy; Z95.5 Presence of coronary angioplasty implant and graft